=== PATIENT | female | born 1965 | race Caucasian/White ===

== ENCOUNTER 2017-07-24 09:35 | Emergency (ER) | payer BC, SELFPAY ==
--- NOTE | 2017-07-24 10:43 | RAD REPORT ---
EXAM DESCRIPTION: CT - CTHCSPWOC - 07/24/2017 10:27 am CLINICAL HISTORY: Trauma, head and neck injury. COMPARISON: None. TECHNIQUE: Axial 5 mm thick images of the head were obtained. Axial 2 mm thick images of the cervical spine were obtained with sagittal and coronal reconstruction images generated and reviewed. All CT scans are performed using dose optimization technique as appropriate and may include automated exposure control or mA/KV adjustment according to patient size. FINDINGS: CT HEAD WITHOUT CONTRAST: No acute hemorrhage, hydrocephalus or extra-axial collection is identified.No areas of brain edema or midline shift. The paranasal sinuses and mastoids are clear.The calvarium is intact. CT CERVICAL SPINE WITHOUT CONTRAST: No fracture or subluxation.Mild lower cervical spondylosis.No prevertebral soft tissues swelling is i dentified. IMPRESSION: No acute intracranial or cervical spine findings.
[2017-07-24 11:39] LABS: Absolute Lymphocytes (CBC) 1.5 K/uL (0.7-4.9); Absolute Monocytes 0.3 K/uL (0.1-1.3); Absolute Neutrophil 3.8 K/uL (1.8-8.0); Basophils % 0.4 % (0-1.3); Eosinophils % 2.1 % (0-4.4); Hematocrit 43.5 % (36.0-45.0); Lymphocytes % 25.6 % (15.3-44.8); MCH 27.9 pg (27.0-35.0); MCV 85.3 fL (80-100); MPV 7.5 fL (7.6-11.3); Monocytes % 5.3 % (3.3-12.3); RBC Red Blood Cell Count 5.11 M/uL (3.86-4.86)
[2017-07-24 11:50] LABS: Potassium 4.1 mEq/L (3.6-5.0)
--- NOTE | 2017-07-24 12:43 | RAD REPORT ---
EXAM DESCRIPTION: CT - Head angio - 07/24/2017 12:05 pm CLINICAL HISTORY: Headache, history of head bleed. COMPARISON: Non-contrast CT head 07/24/2017. FINDINGS: CT angiography of the [place] was obtained. No flow abnormality of the [place] is identified such as aneurysm, flow-limiting stenosis or vascular malformation. origin of the left posterior communicating artery noted. This is a norm al variant. Vertebrobasilar system is somewhat diminutive in size but widely patent. The dural venous sinuses are patent. IMPRESSION: No significant flow abnormality of the [place] identified.
--- NOTE | 2017-07-24 12:48 | EDPHYS ---
Physician Documentation [facility] Name: Magali Quiroz Age: 51 yrs Sex: Female : 1965 Arrival Date: 07/24/2017 Time: 09:39 Bed 17 Private MD: ED Physician Michael Mahoney HPI: 07/24 11:26 This 51 yrs old Female presents to ER via Ambulatory with complaints of PAIN snw FROM PREVIOUS HEAD INJURY. 11:26 The patient or guardian reports pain, tenderness. The complaints affect the left side snw of the back of head. Context of injury: resulted from a direct blow, a heavy object. Onset: The symptoms/episode began/occurred gradually, and became persistent. Associated signs and symptoms: Loss of consciousness: This patient did not experience any loss of consciousness. Pertinent positives: water flow sensation to left occipital area post a popping sensation. Severity of symptoms: At their worst the symptoms were moderate. The patient has not experienced similar symptoms in the past. The patient has not recently seen a physician. 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 - Social history:: Smoking status: Patient/guardian denies using tobacco. ROS: 11:23 Constitutional: Negative for fever, chills, and weight loss, Eyes: Negative for injury, snw pain, redness, and discharge, ENT: Negative for injury, pain, and discharge, Neck: Negative for injury, pain, and swelling, Cardiovascular: Negative for chest pain, palpitations, and edema, Respiratory: Negative for shortness of breath, cough, wheezing, and pleuritic chest pain, Abdomen/GI: Negative for abdominal pain, nausea, vomiting, diarrhea, and constipation, Back: Negative for injury and pain, : Negative for injury, bleeding, discharge, and swelling, MS/Extremity: Negative for injury and deformity, Skin: Negative for injury, rash, and discoloration. 11:23 Neuro: Positive for headache, pt states she feels a running water sensation at intervals to left occipital area. Exam: 11:23 Constitutional: This is a well developed, well nourished patient who is awake, alert, snw and in no acute distress. Head/Face: Normocephalic, atraumatic. Eyes: Pupils equal round and reactive to light, extra-ocular motions intact. Lids and lashes normal. Conjunctiva and sclera are non-icteric and not injected. Cornea within normal limits. Periorbital areas with no swelling, redness, or edema. ENT: Nares patent. No nasal discharge, no septal abnormalities noted. Tympanic membranes are normal and external auditory canals are clear. Oropharynx with no redness, swelling, or masses, exudates, or evidence of obstruction, uvula midline. Mucous membranes moist. Neck: Trachea midline, no thyromegaly or masses palpated, and no cervical lymphadenopathy. Supple, full range of motion without nuchal rigidity, or vertebral point tenderness. No Meningismus. Chest/axilla: Normal chest wall appearance and motion. Nontender with no deformity. No lesions are appreciated. Cardiovascular: Regular rate and rhythm with a normal S1 and S2. No gallops, murmurs, or rubs. Normal PMI, no JVD. No pulse deficits. Respiratory: Lungs have equal breath sounds bilaterally, clear to auscultation and percussion. No rales, rhonchi or wheezes noted. No increased work of breathing, no retractions or nasal flaring. Abdomen/GI: Soft, non-tender, with normal bowel sounds. No distension or tympany. No guarding or rebound. No evidence of tenderness throughout. Back: No spinal tenderness. No costovertebral tenderness. Full range of motion. Skin: Warm, dry with normal turgor. Normal color with no rashes, no lesions, and no evidence of cellulitis. MS/ Extremity: Pulses equal, no cyanosis. Neurovascular intact. Full, normal range of motion. Neuro: Awake and alert, GCS 15, oriented to person, place, time, and situation. Cranial nerves II-XII grossly intact. Motor strength 5/5 in all extremities. Sensory grossly intact. Cerebellar exam normal. Normal gait. Vital Signs: 10:00 BP 155 / 100; Pulse 88; Resp 18 S; Temp 98.2(TE); Pulse Ox 100% on R/A; Weight 68.95 kg aa5 (R); Height 5 ft. 4 in. (162.56 cm) (R); Pain 7/10; 10:47 BP 149 / 95; Pulse 78; Resp 16; Pulse Ox 100% ; mh5 11:30 BP 143 / 100; Pulse 69; Resp 16; Pulse Ox 100% on R/A; mh5 12:22 BP 145 / 98; Pulse 79; Resp 15; Pulse Ox 97% on R/A; mh5 10:00 Body Mass Index 26.09 (68.95 kg, 162.56 cm) aa5 [place] Coma Score: 11:26 Eye Response: spontaneous(4). Verbal Response: oriented(5). Motor Response: obeys snw commands(6). Total: 15. 13:01 Eye Response: spontaneous(4). Verbal Response: oriented(5). Motor Response: obeys snw commands(6). Total: 15. MDM: 10:44 Patient medically screened. snw 13:01 Data reviewed: vital signs, nurses notes. Data interpreted: Pulse oximetry: on room air snw is 97 %. Interpretation: normal. Counseling: I had a detailed discussion with the patient and/or guardian regarding: the historical points, exam findings, and any diagnostic results supporting the discharge/admit diagnosis, the presence of at least one elevated blood pressure reading (>120/80) during this emergency department visit, the need for outpatient follow up, to return to the emergency department if symptoms worsen or persist or if there are any questions or concerns that arise at home. Special discussion: Based on the patient's history, exam and DX evaluation, there is no indication for emergent intervention or inpatient TX. It is understood by the patient/guardian that if the SXs persist or worsen they need to return immediately for re-evaluation. Based on the history and exam findings, there is no indication for further emergent testing or inpatient evaluation. I discussed with the patient/guardian the need to see the primary care provider for further evaluation of the symptoms. 07/24 11:11 Order name: CBC with Diff; Complete Time: 11:46 snw 07/24 11:11 Order name: Chem 7; Complete Time: 11:57 [facility] 07/24 10:11 Order name: CT Head C Spine; Complete Time: 10:44 [facility] 07/24 11:12 Order name: Head angio; Complete Time: 12:46 [facility] 07/24 12:56 Order name: Urine Dipstick--Ancillary (enter results) bd Administered Medications: No medications were administered Disposition: 18:40 Co-signature as Attending Physician, Michael Mahoney MD. Disposition: 07/24/17 12:47 Discharged to Home. Impression: Headache. - Condition is Stable. - Discharge Instructions: General Headache Without Cause, Hypertension, Rehydration, Adult. - Prescriptions for Fiorinal 50- 325-40 mg Oral Capsule - take 1 capsule by ORAL route every 6 hours As needed - not to exceed 6 capsules per day; 10 capsule. orphenadrine citrate 100 mg Oral Tablet Sustained Release - take 1 tablet by ORAL route 2 times per day As needed; 20 tablet. - Medication Reconciliation Form, Thank You Letter, Antibiotic Education, Prescription Opioid Use form. - Follow up: Private Physician; When: 2 - 3 days; Reason: Recheck today's complaints, Continuance of care, Re-evaluation by your physician. Follow up: Emergency Department; When: As needed; Reason: Worsening of condition. Signatures: Dispatcher [employer] [facility] Anette Rivera, HACK SAW OPERATOR-C HACK SAW OPERATOR-Csnw Winifred Joshi RN RN aa5 Fabiana Hickey RN RN hb Michael Mahoney MD MD Corrections: (The following items were deleted from the chart) 13:01 12:47 07/24/2017 12:47 Discharged to Home. Impression: Headache. Condition is Stable. hb Forms are Medication Reconciliation Form, Thank You Letter, Antibiotic Education, Prescription Opioid Use. Follow up: Private Physician; When: 2 - 3 days; Reason: Recheck today's complaints, Continuance of care, Re-evaluation by your physician. Follow up: Emergency Department; When: As needed; Reason: Worsening of condition. snw
--- NOTE | 2017-07-24 12:48 | ER ---
Nurse's Notes [facility] Name: Magali Quiroz Age: 51 yrs Sex: Female : 1965 Arrival Date: 07/24/2017 Time: 09:39 Bed 17 Private MD: Diagnosis: Headache Presentation: 07/24 09:56 Presenting complaint: Patient states: "I had a traumatic brain injury back in 2008 and aa5 I had bleeding in the brain but this Thursday I hit my head with a metal thing and I am worried about bleeding again". Pt denies LOC. Pt c/o head and neck pain. Transition of care: patient was not received from another setting of care. Onset of symptoms was July 2017. Initial Sepsis Screen: Does the patient meet any 2 criteria? No. Patient's initial sepsis screen is negative. Does the patient have a suspected source of infection? No. Patient's initial sepsis screen is negative. Care prior to arrival: None. 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 - Social history:: Smoking status: Patient/guardian denies using tobacco. Screenin:20 Abuse screen: Denies threats or abuse. Denies injuries from another. Nutritional hb screening: No deficits noted. Tuberculosis screening: No symptoms or risk factors identified. Fall Risk None identified. Assessment: 11:20 General: Appears in no apparent distress. Behavior is calm, cooperative. Pain: Pain hb currently is 3 out of 10 on a pain scale. Neuro: Level of Consciousness is awake, alert, obeys commands, Oriented to person, place, time, situation. Cardiovascular: Capillary refill < 3 seconds Patient's skin is warm and dry. Respiratory: Airway is patent Trachea midline Respiratory effort is even, unlabored, Respiratory pattern is regular, symmetrical. GI: No signs and/or symptoms were reported involving the gastrointestinal system. : No signs and/or symptoms were reported regarding the genitourinary system. EENT: No signs and/or symptoms were reported regarding the EENT system. Derm: No signs and/or symptoms reported regarding the dermatologic system. Skin is pink, warm \\T\\ dry. Musculoskeletal: No signs and/or symptoms reported regarding the musculoskeletal system. 12:00 Reassessment: Patient appears in no apparent distress at this time. No changes from hb previously documented assessment. Patient and/or family updated on plan of care and expected duration. Pain level reassessed. Patient is alert, oriented x 3, equal unlabored respirations, skin warm/dry/pink. 13:00 Reassessment: Patient appears in no apparent distress at this time. No changes from hb previously documented assessment. Patient and/or family updated on plan of care and expected duration. Pain level reassessed. Patient is alert, oriented x 3, equal unlabored respirations, skin warm/dry/pink. Vital Signs: 10:00 BP 155 / 100; Pulse 88; Resp 18 S; Temp 98.2(TE); Pulse Ox 100% on R/A; Weight 68.95 kg aa5 (R); Height 5 ft. 4 in. (162.56 cm) (R); Pain 7/10; 10:47 BP 149 / 95; Pulse 78; Resp 16; Pulse Ox 100% ; mh5 11:30 BP 143 / 100; Pulse 69; Resp 16; Pulse Ox 100% on R/A; mh5 12:22 BP 145 / 98; Pulse 79; Resp 15; Pulse Ox 97% on R/A; mh5 10:00 Body Mass Index 26.09 (68.95 kg, 162.56 cm) aa5 [place] Coma Score: 11:26 Eye Response: spontaneous(4). Verbal Response: oriented(5). Motor Response: obeys snw commands(6). Total: 15. 13:01 Eye Response: spontaneous(4). Verbal Response: oriented(5). Motor Response: obeys snw commands(6). Total: 15. ED Course: 09:39 Patient arrived in ED. sb2 09:58 Triage completed. aa5 09:58 Arm band placed on. aa5 10:26 CT completed. Patient tolerated procedure well. Patient moved to CT via wheelchair. sj Patient moved back from CT. 10:27 CT Head C Spine In Process Unspecified. EDMS 10:32 [facility]C [facility] snw 10:32 Michael Mahoney MD is Attending Physician. snw 10:37 Fabiana Hickey, RN is Primary Nurse. hb 11:20 Patient has correct armband on for positive identification. Bed in low position. Call hb light in reach. Side rails up X 1. 11:33 Inserted saline lock: 20 gauge in right antecubital area, using aseptic technique. hb Blood collected. 12:05 Head angio In Process Unspecified. EDMS 12:05 CT completed. Patient tolerated procedure well. Patient moved to CT via wheelchair. sj Patient moved to CT Patient moved back from CT. 13:01 No provider procedures requiring assistance completed. IV discontinued, intact, hb bleeding controlled, No redness/swelling at site. Pressure dressing applied. Administered Medications: No medications were administered Outcome: 12:47 Discharge ordered by . snw 13:01 Discharged to home ambulatory, with significant other. hb 13:01 Condition: stable 13:01 Discharge instructions given to patient, Instructed on discharge instructions, follow up and referral plans. medication usage, Demonstrated understanding of instructions, follow-up care, medications, Prescriptions given X 2. 13:01 Patient left the ED. hb Signatures: Dispatcher [employer] EDLA Anette Rivera FNP-C FNP-Hank Tiffanie Riggins Audri, RN RN [facility] Fabiana Hickey RN RN hb Martinez, Maria [facility] Lucía Jane 2 Corrections: (The following items were deleted from the chart) 10: 09:56 Presenting complaint: Patient states: "I had a traumatic brain injury back in 2008 and I had bleeding in the brain but this Thursday I hit my head with a metal thing and I am worried about bleeding again". Pt denies LOC. [facility] 10: 09:56 Acuity: KATHERINE 3 aa5 aa5
[2017-07-24 14:03] LABS: Urine Blood NEGATIVE (NEG); Urine Glucose NEGATIVE (NEG); Urine Protein NEGATIVE (NEG); Urine Specific Gravity 1.015 (1.005-1.030); Urine pH 7.5 (5.0-7.0)
== END 2017-07-24 13:01 | disposition home or self-care (01) ==
LOC: ER 09:35
DX: R51 Headache (principal); Z87.820 Personal history of traumatic brain injury; Z88.5 Allergy status to narcotic agent
CPT/HCPCS: 36415; 70450; 70496; 72125; 80048; 81003; 85025; 99284; Q9967

== ENCOUNTER 2017-08-11 03:21 | Emergency (ER) | payer BC, SELFPAY ==
--- NOTE | 2017-08-11 04:55 | ER ---
Nurse's Notes [facility] Name: Magali Quiroz Age: 52 yrs Sex: Female : 1965 Arrival Date: 08/11/2017 Time: 03:26 Bed 14 Private MD: Rigoberto Morales Diagnosis: Other sprain of right foot Presentation: 08/11 03:29 Presenting complaint: Patient states: that she tripped over the dog last night at 2030. fc Now nancy is red and swollen, very tender to touch. Transition of care: patient was not received from another setting of care. Onset of symptoms was August 10, 2017 at 20:30. Risk Assessment: Do you want to hurt yourself or someone else? Patient reports no desire to harm self or others. Initial Sepsis Screen: Does the patient meet any 2 criteria? HR > 90 bpm. Yes Does the patient have a suspected source of infection? No. Patient's initial sepsis screen is negative. Care prior to arrival: Medication(s) given: Hydrocodone at 2130. 03:29 Method Of Arrival: Wheelchair fc 03:29 Acuity: KATHERINE 4 fc [employer]: 03:33 LMP N/A - Post-menopause fc Historical: - Allergies: 03:33 Demerol; fc - Home Meds: 03:33 hydrocodone-acetaminophen 7.5-325 mg Oral tab every 4-6 hours [Active]; Zoloft 50 mg fc oral tab 1 tab nightly [Active]; cyclobenzaprine 10 mg oral tab as needed [Active]; duloxetine 30 mg 1 tab in am and mid day then 60 mg at night oral cpDR [Active]; - PMHx: 03:33 Brain bleed from traumatic head injury 2008; ectopic ; muscle pain; fc - PSHx: 03:33 Knee surgery; Cholecystectomy; Appendectomy; back surg; ectopic ; fc - Immunization history:: Last tetanus immunization: up to date. - Social history:: Smoking status: Patient/guardian denies using tobacco. - Ebola Screening: : Patient negative for fever greater than or equal to 101.5 degrees Fahrenheit, and additional compatible Ebola Virus Disease symptoms Patient denies exposure to infectious person Patient denies travel to an Ebola-affected area in the 21 days before illness onset. Screenin:35 Abuse screen: Denies threats or abuse. Nutritional screening: No deficits noted. Tuberculosis screening: No symptoms or risk factors identified. 04:00 Fall Risk None identified. aa1 Assessment: 04:00 General: Appears in no apparent distress. comfortable, Behavior is calm, cooperative, aa1 appropriate for age. Pain: Complains of pain in dorsum of right foot. Neuro: Level of Consciousness is awake, alert, obeys commands, Oriented to person, place, time, situation. Respiratory: Airway is patent Respiratory effort is even, unlabored, Respiratory pattern is regular, symmetrical. GI: No signs and/or symptoms were reported involving the gastrointestinal system. : No signs and/or symptoms were reported regarding the genitourinary system. EENT: No signs and/or symptoms were reported regarding the EENT system. Derm: Skin is intact, is healthy with good turgor, Skin is pink, warm \T\ dry. Musculoskeletal: Circulation, motion, and sensation intact. Capillary refill < 3 seconds, Range of motion: intact in all extremities. 05:05 Reassessment: Patient appears in no apparent distress at this time. Patient is alert, aa1 oriented x 3, equal unlabored respirations, skin warm/dry/pink. Discussed d/c \T\ f/u instructions with pt; denies questions or concerns at this time. Vital Signs: 03:33 BP 152 / 97; Pulse 95; Resp 18; Temp 97.9(O); Pulse Ox 99% on R/A; Weight 68.49 kg (R); fc Height 5 ft. 4 in. (162.56 cm) (R); Pain 8/10; 03:33 Body Mass Index 25.92 (68.49 kg, 162.56 cm) ED Course: 03:26 Patient arrived in ED. ds1 03:26 Rigoberto Morales MD is Private Physician. ds1 03:31 Triage completed. fc 03:33 Arm band placed on right wrist. Patient placed in an exam room, on a stretcher. fc 03:35 Patient has correct armband on for positive identification. Bed in low position. Call light in reach. 03:47 Ranjit Solis MD is Attending Physician. tw4 04:00 X-ray completed. Portable x-ray completed in exam room. Patient tolerated procedure kw well. 04:01 Foot Right 3 View XRAY In Process Unspecified. EDMS 04:55 Rigoberto Morales MD is Referral Physician. tw4 04:57 Patria Durand, RN is Primary Nurse. aa1 05:05 No provider procedures requiring assistance completed. Patient did not have IV access aa1 during this emergency room visit. Administered Medications: 05:00 Drug: [place] 5 mg-325 mg 1 tabs Route: PO; aa1 05:04 Follow up: Response: No adverse reaction; Medication administered at discharge. aa1 Outcome: 04:55 Discharge ordered by . tw4 05:05 Discharged to home via wheelchair, with significant other. aa1 05:05 Condition: good 05:05 Discharge instructions given to patient, significant other, Instructed on discharge instructions, follow up and referral plans. medication usage, Demonstrated understanding of instructions, follow-up care, medications, Prescriptions given X 2. 05:09 Patient left the ED. aa1 Signatures: Dispatcher [employer] EDNE Patria Durand, GABE BERNAL aa1 Kiana Carvajal RN RN fc [place], Demi ds1 Danisha William Terrence, MD MD tw4
--- NOTE | 2017-08-11 04:55 | EDPHYS ---
Physician Documentation [facility] Name: Magali Quiroz Age: 52 yrs Sex: Female : 1965 Arrival Date: 08/11/2017 Time: 03:26 Bed 14 Private MD: Rigoberto Morales ED Physician Ranjit Solis HPI: 08/11 06:56 This 52 yrs old Female presents to ER via Wheelchair with complaints of Foot tw4 Injury. 06:56 The patient presents with a contusion, an injury. tw4 06:57 The complaints affect the right foot. Context: The problem was sustained at home. tw4 Modifying factors: The symptoms are alleviated by nothing, the symptoms are aggravated by nothing. Associated signs and symptoms: The patient has no apparent associated signs or symptoms. Severity of symptoms: At their worst the symptoms were. The patient has not experienced similar symptoms in the past. 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 - Social history:: Smoking status: Patient/guardian denies using tobacco. - Ebola Screening: : Patient negative for fever greater than or equal to 101.5 degrees Fahrenheit, and additional compatible Ebola Virus Disease symptoms Patient denies exposure to infectious person Patient denies travel to an Ebola-affected area in the 21 days before illness onset. ROS: 06:57 MS/extremity: Positive for injury or acute deformity, decreased range of motion, pain. tw4 06:57 Cardiovascular: Negative for chest pain, palpitations, and edema, Respiratory: Negative for shortness of breath, cough, wheezing, and pleuritic chest pain, Abdomen/GI: Negative for abdominal pain, nausea, vomiting, diarrhea, and constipation, Back: Negative for injury and pain. 06:57 MS/extremity: Positive for injury or acute deformity, contusion, decreased range of motion, pain, Negative for Exam: 06:57 Constitutional: This is a well developed, well nourished patient who is awake, alert, tw4 and in no acute distress. Head/Face: Normocephalic, atraumatic. Cardiovascular: Regular rate and rhythm with a normal S1 and S2. No gallops, murmurs, or rubs. Normal PMI, no JVD. No pulse deficits. Respiratory: Lungs have equal breath sounds bilaterally, clear to auscultation and percussion. No rales, rhonchi or wheezes noted. No increased work of breathing, no retractions or nasal flaring. 06:57 Musculoskeletal/extremity: Extremities: noted in the dorsum of right foot: ROM: limited active range of motion, limited passive range of motion, in the dorsum of right foot, right second toe and Right first toenail. Vital Signs: 03:33 BP 152 / 97; Pulse 95; Resp 18; Temp 97.9(O); Pulse Ox 99% on R/A; Weight 68.49 kg (R); fc Height 5 ft. 4 in. (162.56 cm) (R); Pain 8/10; 03:33 Body Mass Index 25.92 (68.49 kg, 162.56 cm) fc MDM: 03:47 Patient medically screened. tw4 06:57 Data reviewed: vital signs, nurses notes. Data interpreted: monitoring analyst: rhythm is tw4 normal sinus rhythm, Pulse oximetry: Interpretation: normal. Counseling: I had a detailed discussion with the patient and/or guardian regarding: the historical points, exam findings, and any diagnostic results supporting the discharge/admit diagnosis. Medication response: NORCO. Response to treatment: the patient's symptoms have markedly improved after treatment, and as a result, I will discharge patient. Special discussion: I discussed with the patient/guardian in detail that at this point there is no indication for admission to the hospital. It is understood, however, that if the symptoms persist or worsen the patient needs to return immediately for re-evaluation. 08/11 03:39 Order name: Foot Right 3 View XRAY; Complete Time: 07:59 fc Administered Medications: 05:00 Drug: [place] 5 mg-325 mg 1 tabs Route: PO; aa1 05:04 Follow up: Response: No adverse reaction; Medication administered at discharge. aa1 Disposition: 08/11/17 04:55 Discharged to Home. Impression: Other sprain of right foot. - Condition is Stable. - Discharge Instructions: Foot Contusion, Foot Contusion, [id number]. - Prescriptions for Ibuprofen 800 mg Oral Tablet - take 1 tablet by ORAL route every 8 hours As needed take with food; 30 tablet. Tylenol- Codeine #3 300-30 mg Oral Tablet - take 2 tablet by ORAL route every 6 hours As needed; 6 tablet. - Medication Reconciliation Form, Thank You Letter, Antibiotic Education, Prescription Opioid Use form. - Follow up: Rigoberto Morales MD; When: As needed; Reason: If symptoms return, Recheck today's complaints, Continuance of care, Re-evaluation by your physician. - Problem is new. - Symptoms have improved. Addendum: 08/19/2017 08:11 Addendum: D/w patient and she indicated that in follow-up her PCP noted the fracture k dr and that she had been sent for an MRI. Current concern is for a possible Lis Franc fracture. She was not given pain medication, splinting or wrap support. 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 I indicated that we would defer the physician portion of the bill. The conversation was cordial and she seemed to be satisfied with the call-back and proposed outcome/remediation. 09/17/2017 15:55 Addendum: Katherine abreu dr Signatures: Dispatcher [employer] [facility] Patria Durand RN RN aa1 German Rodarte MD MD [facility] Kiana Carvajal RN RN Ranjit Solsi MD MD tw4 Corrections: (The following items were deleted from the chart) 08/11 05:09 04:55 08/11/2017 04:55 Discharged to Home. Impression: Other sprain of right foot. aa1 Condition is Stable. Forms are Medication Reconciliation Form, Thank You Letter, Antibiotic Education, Prescription Opioid Use. Follow up: Rigoberto Morales; When: As needed; Reason: If symptoms return, Recheck today's complaints, Continuance of care, Re-evaluation by your physician. Problem is new. Symptoms have improved. tw4
[2017-08-11] MEDS ORDERED: HYDROCODONE/APAP 5/325 MG TAB ONE (05:01)
--- NOTE | 2017-08-11 09:21 | RAD REPORT ---
EXAM DESCRIPTION: RAD - Foot Right 3 View - 08/11/2017 4:01 am CLINICAL HISTORY: Pain to foot COMPARISON: None. FINDINGS: Soft tissue swelling is seen along the dorsum of the foot at the level of the tarsal metat arsal articulations. There is subtle lucency seen at the base of the second metatarsal medially this may be a insignificant, however a subtle fracture could also have this appearance. Advise followup MR imaging if pain persists or progresses to better assess this region.
== END 2017-08-11 05:09 | disposition home or self-care (01) ==
LOC: ER 03:21
DX: S93.601A Unspecified sprain of right foot, initial encounter (principal); X58.XXXA Exposure to other specified factors, initial encounter; Y93.9 Activity, unspecified; Y92.009 Unspecified place in unspecified non-institutional (private) residence as the place of occurrence of the external cause; Y99.9 Unspecified external cause status; Z88.8 Allergy status to other drugs, medicaments and biological substances
CPT/HCPCS: 99283

== ENCOUNTER 2022-05-24 13:40 | Emergency (ER) | payer OTHER ==
--- OUTSIDE RECORDS SUMMARY | 2022-05-24 13:46 | XMS REPORT | Continuity of Care Document ---
:1965 Author Organization [facility] t Address [address] [facility] [place] [address] Care Team Providers Name Role Phone Rigoberto Morales Jr. Primary Care Physician ANTONIO RUEDA Attending Clinician Unavailable Carla Hollins PT Attending Clinician Unavailable MADHURI NELSON Attending Clinician Unavailable Madhuri Ann Attending Clinician Antonio Rueda MD Attending Clinician Doctor Unassigned, [place] Attending Clinician Unavailable Tammy Garza RN Attending Clinician Unavailable Pob, [facility] Main Attending Clinician Unavailable Only, Adc Test Attending Clinician Unavailable MAURI ORTEGA Attending Clinician Unavailable Mauri Ortega DO Attending Clinician Shantell Lynn Attending Clinician Unavailable ANTONIO RUEDA Admitting Clinician Unavailable Antonio Rueda MD Admitting Clinician MAURI ORTEGA Admitting Clinician Unavailable Shantell Lynn Admitting Clinician Unavailable Payers Payer Name Policy Type Policy Number Effective Date Expiration Date Bethanie PIKE [id number] 2021 PLAN 00:00:00 Problems Condition Condition Condition Status Onset Resolution Last Treating Co mments Source Name Details Category Date Date Treatment Clinician Date Primary Primary Disease Active Overview: Univ ers osteoarthr osteoarthr 2- Formattin ity of itis of itis of 00:00: g of this [place] left hip left hip 00 note Medica l might be Branch different from the original. Added automatic ally from request for surgery [id number] Allergies, Adverse Reactions, Alerts Allergy Allergy Status Severity Reaction(s) Onset Inactive Treating Comm ents Source Name Type Date Date Clinician Thad Propensi Active Hives Univer s ne ty to 14 ity of adverse 00:00: [place] reaction 00 Medical s Branch MEPERIDI DRUG Active Hives Univers NE INGREDI 03-22 ity of 00:00: [place] 00 Medical Branch meperidi DA Active U [facility] [place] 00:[facility]: [facility] 00 are [facility] meperidi DA Active U UNKNOWN [facility] ne 10-07 [place] 00:00: Health 00 are [facility] Social History Social Habit Start Date Stop Date Quantity Comments Source Exposure to Not sure [facility] SARS-CoV-2 (event) Medica l Branch Tobacco use and 2021-04-01 2021-04-01 Never used [facility] exposure 00:00:00 00:00:00 Medical Branch Sex Ass[birth year] [facility] 00:00:00 00:00:00 Medical Branch Smoking Status Start Date Stop Date Source Smoker, current status 2021-04-01 00:00:00 [facility] Medical unknown Branch Medications Ordered Filled Start Stop Current Ordering Indication Dosage Frequency Signature Comments Components Source Medication Medication Date Date Medication? Clinician (SIG) Name Name rivaroxaban 2021- No 1480 10mg Take 1 Uni vers (XARELTO) 04-15 tablet by ity of 10 mg 00:00: 05:59 mouth [place] tablet 00 :00 daily for Medical 28 days. Branch Indication s: deep vein thrombosis prevention in hip surgery rivaroxaban No 1480 10mg Take 1 Uni vers (XARELTO) 04-15 tablet by ity of 10 mg 00:00: 05:59 mouth [place] tablet 00 :00 daily for Medical 28 days. Branch Indication s: deep vein thrombosis prevention in hip surgery rivaroxaban 2021- No 1480 10mg Take 1 Uni vers (XARELTO) 04-15 tablet by ity of 10 mg 00:00: 05:59 mouth [place] tablet 00 :00 daily for Medical 28 days. Branch Indication s: deep vein thrombosis prevention in hip surgery rivaroxaban 2021- No 1480 10mg Take 1 Uni vers (XARELTO) 2-07 03-08 tablet by ity of 10 mg 00:00: 05:59 mouth [place] tablet 00 :00 daily for Medical 28 days. Branch Indication s: deep vein thrombosis prevention in hip surgery lisinopriL Yes Univers 20 mg 1-26 ity of tablet 00:00: [place] [facility] lisinopriL 0 Yes Univers 20 mg 1-26 ity of tablet 00:00: [place] [facility] lisinopriL 0 Yes Univers 20 mg 1-26 ity of tablet 00:00: [place] [facility] lisinopriL 0 Yes Univers 20 mg 1-26 ity of tablet 00:00: [place] [facility] lisinopriL 0 Yes Univers 20 mg 1-26 ity of tablet 00:00: [place] [facility] Branch DULoxetine Yes TAKE ONE Uni vers 60 mg 1-14 (1) ity of capsule 00:00: [place] 00 BY MOUTH Medical TWICE A Branch DAY FOR NERVE PAIN. DULoxetine Yes TAKE ONE Uni vers 60 mg 1-14 (1) ity of capsule 00:00: [place] 00 BY MOUTH Medical TWICE A Branch DAY FOR NERVE PAIN. DULoxetine Yes TAKE ONE Uni vers 60 mg 1-14 (1) ity of capsule 00:00: [place] 00 BY MOUTH Medical TWICE A Branch DAY FOR NERVE PAIN. DULoxetine Yes TAKE ONE Uni vers 60 mg 1-14 (1) ity of capsule 00:00: [place](S[place] 00 BY MOUTH Medical TWICE A Branch DAY FOR NERVE PAIN. DULoxetine Yes TAKE ONE Uni vers 60 mg 1-14 (1) ity of capsule 00:00: [place] 00 BY MOUTH Medical TWICE A Branch DAY FOR NERVE PAIN. HYDROcodone Yes TAKE ONE Un anival -acetaminop 1-12 (1) ity of hen 10-325 00:00: [place](S) [place] mg tablet 00 BY MOUTH Medica l FOUR TIMES Branch A DAY NEEDED FOR PAIN. HYDROcodone 0 Yes TAKE ONE Un anival -acetaminop 1-12 (1) ity of hen 10-325 00:00: [place](S) [place] tablet 00 BY MOUTH Medica l FOUR TIMES Branch A DAY NEEDED FOR PAIN. HYDROcodone 0 Yes TAKE ONE Un anival -acetaminop 1-12 (1) ity of hen 10-325 00:00: TABLET(S) [place] tablet 00 BY MOUTH Medica l FOUR TIMES Branch A DAY NEEDED FOR PAIN. HYDROcodone 0 Yes TAKE ONE Un anival -acetaminop 1-12 (1) ity of hen 10-325 00:00: TABLET(S) [place] tablet 00 BY MOUTH Medica l FOUR TIMES Branch A DAY NEEDED FOR PAIN. HYDROcodone Yes TAKE ONE Un anival -acetaminop 1-12 (1) ity of hen 10-325 00:00: TABLET(S) [place] tablet 00 BY MOUTH Medica l FOUR TIMES Branch A DAY NEEDED FOR PAIN. traMADoL Yes TAKE ONE Unive rs 200 mg 24 1-05 (1) ity of hr tablet 00:00: TABLET(S) Yash as 00 BY MOUTH Medical ONCE A DAY Branch NEEDED FOR PAIN. traMADoL Yes TAKE ONE Unive rs 200 mg 24 1-05 (1) ity of hr tablet 00:00: TABLET(S) Yash as 00 BY MOUTH Medical ONCE A DAY Branch NEEDED FOR PAIN. traMADoL 0 Yes TAKE ONE Unive rs 200 mg 24 1-05 (1) ity of hr tablet 00:00: TABLET(S) Y[place] as 00 BY MOUTH Medical ONCE A DAY Branch NEEDED FOR PAIN. traMADoL 0 Yes TAKE ONE Unive rs 200 mg 24 1-05 (1) ity of hr tablet 00:00: TABLET(S) Yash as 00 BY MOUTH Medical ONCE A DAY Branch NEEDED FOR PAIN. traMADoL Yes TAKE ONE Unive rs 200 mg 24 1-05 (1) ity of hr tablet 00:00: TABLET(S) Yash as 00 BY MOUTH Medical ONCE A DAY Branch NEEDED FOR PAIN. CLENPIQ 10 2020-03 Yes TAKE Univ ers mg-3.5 gram 2-13 DIRECTED ity of -12 00:00: PER DOCTOR [place] gram/160 mL 00 INSTRUCTIO Me dical Soln NS. Branch [facility]-03 Yes TAKE Univ ers mg-3.5 gram 2-13 DIRECTED ity of -12 00:00: PER DOCTOR [place] gram/160 mL 00 INSTRUCTIO Me dical Soln NS. Branch [facility] 10 2020-03 Yes TAKE Univ ers mg-3.5 gram 2-13 DIRECTED ity of -12 00:00: PER DOCTOR [place] gram/160 mL 00 INSTRUCTIO Me dical Soln NS. Branch CLENP 10 2020-03 Yes TAKE Univ ers mg-3.5 gram 2-13 DIRECTED ity of -12 00:00: PER DOCTOR [place] gram/160 mL 00 INSTRUCTIO Me dical Soln NS. Branch [facility] 10 2020-03 Yes TAKE Univ ers mg-3.5 gram 2-13 DIRECTED ity of -12 00:00: PER DOCTOR [place] gram/160 mL 00 INSTRUCTIO Me dical Soln NS. Branch amLODIPine 2020-03 Yes 10mg Take 10 mg U nivers 10 mg 1-17 by mouth ity of tablet 00:00: daily. [address] traZODone 2020-03 Yes TAKE ONE Univ ers 150 mg 1-17 (1) TABLET ity of tablet 00:00: (150 MG) BY MOUTH Medical DAILY Branch NEEDED AT BEDTIME. amLODIPine 2020-03 Yes 10mg Take 10 mg U nivers 10 mg 1-17 by mouth ity of tablet 00:00: daily. [place] [facility] traZODone 2020-03 Yes TAKE ONE Univ ers 150 mg 1-17 (1) TABLET ity of tablet 00:00: (150 MG) BY MOUTH Medical DAILY Branch NEEDED AT BEDTIME. amLODIPine 2020-03 Yes 10mg Take 10 mg U nivers 10 mg 1-17 by mouth ity of tablet 00:00: daily. [address] traZODone 2020-03 Yes TAKE ONE Univ ers 150 mg 1-17 (1) TABLET ity of tablet 00:00: (150 MG) BY MOUTH Medical DAILY Branch NEEDED AT BEDTIME. amLODIPine 2020-03 Yes 10mg Take 10 mg U nivers 10 mg 1-17 by mouth ity of tablet 00:00: daily. [place] [facility] traZODone 2020-03 Yes TAKE ONE Univ ers 150 mg 1-17 (1) TABLET ity of tablet 00:00: (150 MG) BY MOUTH Medical DAILY Branch NEEDED AT BEDTIME. amLODIPine 2020-03 Yes 10mg Take 10 mg U nivers 10 mg 1-17 by mouth ity of tablet 00:00: daily. [place] Medical [facility] traZODone 2020-03 Yes TAKE ONE Univ ers 150 mg 1-17 (1) TABLET ity of tablet 00:00: (150 MG) BY MOUTH Medical DAILY Branch NEEDED AT BEDTIME. Vital Signs Vital Name Observation Time Observation Value Comments Source Systolic blood 2021-04-30 19:21:00 121 mm[Hg] Univer sity [facility] Diastolic blood 2021-04-30 19:21:00 76 [facility]Hg[facility] Heart rate 2021-04-30 19:21:00 74 /min [facility] Body height 2021-04-30 19:21:[address] [facility] Body weight 2021-04-30 19:21:[address] [facility] BMI 2021-04-30 19:21:00 26.97 kg/m2 [facility] Oxygen saturation 2021-04-30 19:21:00 99 /min [facility] in Arterial blood Medical Br anch by Pulse oximetry Procedures Procedure Date / Time Performing Clinician Source Performed PHYSICIAN CORRESPONDENCE 2021-04-22 06:01:00 Doctor Unassigned, [facility] [place] Medical Branch [id number] 2020-10-11 00:00:00 CHORA [facility] [id number] 2020-10-11 00:00:00 CHORA [facility] [id number] 2020-10-11 00:00:00 YOSHI [facility] [id number] 2020-10-11 00:00:00 CHORA [facility] Encounters Start End Encounter Admission Attending Care Care Encounter Source Date/Time Date/Time Type Type Clinicians Facility Department ID 2021-04-10 [facility] [id number] Univers 16:50:26 ANTONIO antony [facility] 2021-04-09 Outpatient Praveen [facility] [id number] Univers 08:55:42 ANTONIO [facility] 2021-07-10 2021-07-10 [facility] [id number] Univers 00:00:00 00:00:00 Management Carla HEALTH [id number] ity of [facility] 4.2.7.2.686 [place] bethanie [facility] [phone] [address] ([facility]) 2021-04-30 2021-04-30 Outpatient Praveen NELSON [facility] [id number] Univers 13:15:00 13:55:32 MADHURI antony [facility] 2021-04-30 2021-04-30 Office [facility] [id number] Univers 13:15:00 13:30:00 Visit Madhuri S Pocits [id number] it y of [place] [id number] Yash as SAUL?BLEA [phone] Oh justus PICKENS [address] [place] [address] OFFICE [facility] 2021-04-30 2021-04-30 Outpatient Praveen NELSON [facility] [id number] Univers 13:15:00 13:15:00 MADHURI antony [facility] 2021-04-30 2021-04-30 [facility] [id number] Univers 00:00:00 00:00:00 (Out) Madhuri S HEALTH [id number] it y of [place] [id number] Yash as SAUL?BLEA [phone] [place] justus PICKENS [address] [place] [address] OFFICE [facility] 2021-04-30 2021-04-30 [facility] [id number] Univers 00:00:00 00:00:00 (Out) Antonio L HEALTH [id number] it y of [place] [id number] Yash as SAUL?BLEA [phone] Oh [address] OFFICE BUILDING 2021-04-22 2021-04-22 Telephone [facility] 1.2.840.114 [id number] Univers 00:00:00 00:00:00 Antonio L HEALTH [id number] it [facility] [id number] Yash as SAUL?BLEA [phone] [address] 2021-04-22 2021-04-22 Orders Doctor RUTH 1.2.840.114 [id number] Univers 00:00:00 00:00:00 Only Unassigned, BARB [id number] ity of [place] [facility] 4.2.7.2.686 Yash as [phone] [address] 2021-04-19 2021-04-19 Telephone [facility] [id number] Univers 00:00:00 00:00:00 Madhuri S HEALTH [id number] it y [facility] [id number] Yash as SAUL?BLEA [id number] [address] 2021-04-15 2021-04-15 Outpatient R [facility] SOR [id number] Univers 06:30:00 15:41:00 ANTONIO camposantony [facility] 2021-04-15 2021-04-15 [facility] [id number] Univers 06:30:00 15:41:00 Encounter Antonio FARRELL [id number] ity of [place] 4.2.7.2.686 [place] SURGICAL [id number] [address] 2021-04-15 2021-04-15 Outpatient R [facility] SOR [id number] Univers 06:30:00 15:41:00 ANTONIO itantony [facility] 2021-04-15 2021-04-15 Surgery [facility] [id number] Univers 07:30:00 10:17:00 Antonio FARRELL 350.1.13.10 i ty [facility] 4.2.7.2.686 [place] SUR[place]ICAL [phone] [facility] CENTER 020 Branch 2021-04-15 2021-04-15 Nurse RUTH Garza [id number] Univers 00:00:00 00:00:00 Triage Tammy DAY [id number] ity of HOSPITAL 4.2.7.2.686 Yash as [phone] [facility] 019 Branch 2021-04-15 2021-04-15 Orders Doctor RUTH [id number] Univers 00:00:00 00:00:00 Only Unassigned, BARB 350.1.13.10 ity of [place] [facility] 4.2.7.2.686 Yash as [phone] [facility] 009 Branch 2021-04-12 2021-04-12 [facility] [id number] Univers 08:35:01 23:59:00 Encounter Antonio FARRELL [id number] ity of [place] 4.2.7.2.686 [facility] [phone] [facility] 850 Branch 2021-04-12 2021-04-12 [employer] Developer Audrey, Gianni Lab Main [facility] [id number] Univers 08:45:00 09:00:00 Visit Antonio Rueda 350.1.13.10 ity of [place] 4.2.7.2.686 [facility] PROFESSIO [phone] [facility] 2021-04-12 2021-04-12 Laboratory Only, Adc Test [facility] 1.2.840. 114 [id number] Univers 08:30:00 08:45:00 Only Antonio Rueda [id number] ity of [place] [id number] [place] [address] [phone] [facility] [address] 2021-04-12 2021-04-12 [facility] [id number] Univers 08:34:43 08:34:43 ANTONIO itantony of [facility] 2021-04-12 2021-04-12 [facility] 1.2.840.114 [id number] Univers 08:34:43 08:34:43 Encounter Antonio FARRELL [id number] ity of [place] 4.2.7.2.686 [place] [id number] [facility] [address] 2021-04-12 2021-04-12 Outpatient [facility] [id number] Univers 08:30:00 08:30:00 ANTONIO gtz [facility] 2021-04-12 2021-04-12 Outpatient R [facility] [id number] Univers 08:30:00 08:30:00 ANTONIO gtz [facility] 2021-04-11 2021-04-11 Telephone [facility] 1.2.840.114 [id number] Univers 00:00:00 00:00:00 Antonio Monroy Pocits 350.1.13.10 it y of [facility] 4.2.7.2.686 Yash as SAUL?BLEA [phone] Oh justus PICKENS [address] [place] [address] OFFICE [facility] 2021-04-10 2021-04-10 Telephone [facility] 1.2.840.114 [id number] Univers 00:00:00 00:00:00 Antonio Monroy Pocits 350.1.13.10 it y of [facility] 4.2.7.2.686 Yash as SAUL?BLEA [id number] Oh justus PICKENS [address] [place] [address] OFFICE [facility] 2021-04-10 2021-04-10 Orders Doctor RUTH 1.2.840.114 [id number] Univers 00:00:00 00:00:00 Only Unassigned, BARB 350.1.13.10 ity of [place] [facility] 4.2.7.2.686 Yash as [phone] [facility] [address] 2021-04-09 2021-04-09 Telephone [facility] 1.2.840.114 [id number] Univers 00:00:00 00:00:00 Antonio Monroy Pocits 350.1.13.10 it y [facility] 4.2.7.2.686 Yash as SAUL?BLEA [phone] Oh justus PICKENS [address] [facility] OFFICE [facility] 2021-04-09 2021-04-09 Telephone CHER Rueda 1.2.840.114 [id number] Univers 00:00:00 00:00:00 Antonio MCALLISTER 350.1.13.10 it y of [place] 4.2.7.2.686 Yash as SAUL?BLEA [phone] Oh justus PICKENS [address] MEDICAL OFFICE [facility] 2021-04-08 2021-04-08 Prep For Marybeth MNCHRISTIE 1.2.840.114 [id number] Univers 00:00:00 00:00:00 Surgery Antonio Monroy HEALTH 350.1.13.10 it y of [place] 4.2.7.2.686 Yash as SAUL?BLEA [phone] Oh justus PICKENS [address] [facility] 2021-04-04 2021-04-04 Orders Doctor RUTH 1.2.840.114 [id number] Univers 00:00:00 00:00:00 Only Unassigned, BARB 350.1.13.10 ity of [place] [facility] 4.2.7.2.686 Yash as [phone] [address] 2021-04-04 2021-04-04 Telephone Marybeth MNCHRISTIE 1.2.840.114 [id number] Univers 00:00:00 00:00:00 Antonio MCALLISTER 350.1.13.10 it y of [place] 4.2.7.2.686 Yash as SAUL?BLEA [phone] Oh justus PICKENS [address] [facility] 2021-04-03 2021-04-03 Telephone Marybeth MNCHRISTIE 1.2.840.114 [id number] Univers 00:00:00 00:00:00 Antonio MCALLISTER 350.1.13.10 it y of [place] 4.2.7.2.686 Yash as SAUL?BLEA [phone] Oh justus PICKENS [address] [facility] 2021-04-02 2021-04-02 Letter Marybeth MNCHRISTIE 1.2.425.524 [id number] Univers 00:00:00 00:00:00 (Out) Antonio Monroy HEALTH 350.1.13.10 it y of [place] 4.2.7.2.686 Yash as SAUL?BLEA [phone] Me justus PICKENS [address] MEDICAL OFFICE [facility] 2021-04-01 2021-04-01 Hospital [facility] 1.2.840.114 [id number] Univers 15:05:00 23:59:00 Encounter Antonio Monroy [facility] 350.1.13.10 ity of [place] 4.2.7.2.686 Yash as SAUL?BLEA [phone] Oh justus PICKENS [address] [facility] OFFICE [facility] 2021-04-01 2021-04-01 Outpatient R [facility] [id number] Univers 15:05:00 23:59:00 [facility] 2021-04-01 2021-04-01 Outpatient R [facility] [id number] Univers 14:45:00 16:54:48 [facility] 2021-04-01 2021-04-01 Office [facility] [id number] Univers 14:45:00 16:54:48 Visit [facility] 350.1.13.10 it y of [place] 4.2.7.2.686 Yash as SAUL?BLEA [phone] Oh justus PICKENS [address] [facility] OFFICE [facility] 2021-04-01 2021-04-01 Orders Doctor RUTH 1.2.840.114 [id number] Univers 00:00:00 00:00:00 Only Unassigned, BARB 350.1.13.10 ity of [place] [facility] 4.2.7.2.686 Yash as [phone] [address] 2021-03-22 2021-03-22 Emergency X [facility] ERT [id number] Univers 07:09:00 12:01:00 MAURI gtz [facility] 2021-03-22 2021-03-22 Emergency X [facility] ERT [id number] Univers 07:09:00 12:01:00 MAURI gtz [facility] 2021-03-22 2021-03-22 Emergency X [facility] ERT [id number] Univers 07:09:00 12:01:00 MAURI gtz [facility] 2021-03-22 2021-03-22 Emergency Ortega, [facility] [id number] Univers 07:09:00 12:01:00 Mauri FARRELL 350.1.13.10 i ty piyush ALONSO 4.2.7.2.686 [facility] [phone] [facility] [address] 2020-10-07 2020-10-20 Inpatient EM [id number] [facility] 12:12:00 14:11:00 86 [facility] are [facility] Results Test Description Test Time Test Comments Results Result Comments Source ARTERIAL BLOOD GAS 2020-11-04 06:43:00 Test Item Value Reference Range Interpretation Comme nts ARTERIAL BLOOD GAS PH (test 7.495 7.35-7.45 H code = PHA) ARTERIAL BLOOD GAS PCO2 (test 32.1 mmHg 35-45 L code = PCO2A) ARTERIAL BLOOD GAS PO2 (test 71.2 mmHg 80-100 L code = PO2A) BICARBONATE TOTAL HCO3 (test 24.2 mmol/L 22-26 N code = HCO3) BASE EXCESS (test code = DAV) 1.5 mmol/L See_Comment N [Automated message] The system which ge nerated this result transmit magali reference range: (+/-)2.0 . The reference range was not used to interpret th is result as normal/abnormal . ABG O2 SATURATION (test code = 93.3 % 95.0-100.0 L SATA) ABG TYPE (test code = TYPEA) Arterial ARTERIAL FIO2 (test code = 50.0 % FIO2A) ABG VENT MODE (test code = PRVC MODEA) ABG VENT RESP RATE (test code 15 /MIN = RRA) ABG TIDAL VOLUME (test code = 360.0 ML TIDAL VOLUME) ABG PEEP (test code = PEEP) 5.0 cmH2O ALLENS TEST (test code = Yes ALLENS) TOTAL HGB (test code = THB) 12.6 g/dL 12.0-16.0 N ARTERIAL BLOOD [id number] 06:43:00 Test Item Value Reference Range Interpretation Comments ARTERIAL BLOOD GAS PH 7.495 7.35-7.45 H (test code = PHA) ARTERIAL BLOOD GAS 32.1 mmHg 35-45 L PCO2 (test code = PCO2A) ARTERIAL BLOOD GAS 71.2 mmHg 80-100 L PO2 (test code = PO2A) BICARBONATE TOTAL 24.2 mmol/L 22-26 N HCO3 (test code = HCO3) BASE EXCESS (test 1.5 mmol/L See_Comment N [Automate d message] code = DAV) The system [employer] generated this result transmitted ref erence range: (+/-)2.0 . The reference range was not used to int erpret this result as normal/abnormal . ABG O2 SATURATION 93.3 % 95.0-100.0 L (test code = SATA) ABG TYPE (test code = Arterial TYPEA) ARTERIAL FIO2 (test 50.0 % code = FIO2A) ABG VENT MODE (test PRVC code = MODEA) ABG VENT RESP RATE 15 /MIN (test code = RRA) ABG TIDAL VOLUME 360.0 ML (test code = TIDAL VOLUME) ABG PEEP (test code = 5.0 cmH2O PEEP) ALLENS TEST (test Yes code = ALLENS) TOTAL HGB (test code 12.6 g/dL 12.0-16.0 N = THB) [id number] 07:47:00 Test Item Value Reference Range Interpretation Comments PHOSPHOROUS (test code = PHOS) 5.0 mg/dl 2.5-4.6 H [id number] 07:47:00 Test Item Value Reference Range Interpretation Comments MAGNESIUM (test code = MAG) 2.3 mg/dl 1.8-2.5 N CBC W/AUTO [id number] 05:52:00 Test Item Value Reference Range Interpretation Comments WHITE BLOOD CELL (test code = 12.8 x10 3/uL 3.2-11.5 H WBC) RED BLOOD CELL (test code = 4.45 x10(6)/m 3.70-5.10 N RBC) HEMOGLOBIN (test code = HGB) 12.3 g/dL 12.0-15.0 N HEMATOCRIT (test code = HCT) 37.7 % 35.7-44.8 N MEAN CELL VOLUME (test code = 85 fL 80-100 N MCV) MEAN CELL HGB (test code = MCH) 27.6 pg 26.2-33.8 N MEAN CELL HGB CONCENTRATION 32.6 g/dL 30.0-34.0 N (test code = MCHC) RED CELL DISTRIBUTION WIDTH 12.1 % 11.3-14.5 N (test code = RDW) PLATELET COUNT (test code = 500 x10 3/uL 130-408 H PLT) MEAN PLATELET VOLUME (test code 9.3 fL 8.6-12.6 N = MPV) NEUTROPHIL % (test code = NT%) 74.4 % 40.0-70.0 H IMMATURE GRANULOCYTE % (test 1.3 % 0.0-2.0 N code = IG%) LYMPHOCYTE % (test code = LY%) 13.5 % 20-40 L MONOCYTE % (test code = MO%) 8.6 % 1-10 N EOSINOPHIL % (test code = EO%) 1.7 % 0.0-5.0 N BASOPHIL % (test code = BA%) 0.5 % 0.0-1.0 N NUCLEATED RBC % (test code = 0.0 % 0.0-0.9 N NRBC%) NEUTROPHIL # (test code = NT#) 9.5 x10 3/uL 1.6-7.2 H LYMPHOCYTE # (test code = LY#) 1.73 x10 3/uL 1.1-2.7 N MONOCYTE # (test code = MO#) 1.1 x10 3/uL 0.3-0.8 H EOSINOPHIL # (test code = EO#) 0.2 x10 3/uL 0.0-0.5 N BASOPHIL # (test code = BA#) 0.1 x10 3/uL 0.0-0.1 N BASIC METABOLIC [id number] 05:34:00 Test Item Value Reference Range Interpretation Comments SODIUM (test code = 137 mmol/L 135-145 N NA) POTASSIUM (test code 3.1 mmol/L 3.6-5.0 L = K) CHLORIDE (test code = 92 mmol/L 101-111 L CL) CARBON DIOXIDE (test 31 mmol/L 21-31 N code = CO2) GLUCOSE (test code = 93 mg/dl 70-100 N GLU) BLOOD UREA NITROGEN 33 mg/dl 6-20 H (test code = BUN) GLOMERULAR FILTRATION 31 >60 L The es timated RATE (test code = glomerular filtration GFR) rate is compute d usingpatient ra ce, age (>18), sex, and serum creatinine. If anyof the needed data elements are mi ssing the Laboratory cannot compute an inga mation of the glomerul ar filtration rate . CREATININE (test code 1.77 mg/dL 0.44-1.03 H = CREAT) CALCIUM (test code = 8.7 mg/dL 8.5-10.5 N CA) [id number] 05:30:00 Test Item Value Reference Range Interpretation Comments GLUBED (test code = GLUBED) 91 MG/DL 70-105 N CBC W/AUTO [id number] 05:27:00 Test Item Value Reference Range Interpretation Comments WHITE BLOOD CELL (test code = 12.8 x10 3/uL 3.2-11.5 H WBC) RED BLOOD CELL (test code = 4.45 x10(6)/m 3.70-5.10 N RBC) HEMOGLOBIN (test code = HGB) 12.3 g/dL 12.0-15.0 N HEMATOCRIT (test code = HCT) 37.7 % 35.7-44.8 N MEAN CELL VOLUME (test code = 85 fL 80-100 N MCV) MEAN CELL HGB (test code = MCH) 27.6 pg 26.2-33.8 N MEAN CELL HGB CONCENTRATION 32.6 g/dL 30.0-34.0 N (test code = MCHC) RED CELL DISTRIBUTION WIDTH % 11.3-14.5 (test code = RDW) PLATELET COUNT (test code = x10 3/uL 130-408 PLT) MEAN PLATELET VOLUME (test code 9.3 fL 8.6-12.6 N = MPV) NEUTROPHIL % (test code = NT%) % 40.0-70.0 LYMPHOCYTE % (test code = LY%) % 20-40 MONOCYTE % (test code = MO%) % 1-10 EOSINOPHIL % (test code = EO%) % 0.0-5.0 BASOPHIL % (test code = BA%) % 0.0-1.0 NUCLEATED RBC % (test code = % 0.0-0.9 NRBC%) NEUTROPHIL # (test code = NT#) x10 3/uL 1.6-7.2 LYMPHOCYTE # (test code = LY#) x10 3/uL 1.1-2.7 MONOCYTE # (test code = MO#) x10 3/uL 0.3-0.8 EOSINOPHIL # (test code = EO#) x10 3/uL 0.0-0.5 [id number] 20:33:00 Test Item Value Reference Range Interpretation Comments GLUBED (test code = GLUBED) 108 MG/DL 70-105 H [id number] 15:27:00 Test Item Value Reference Range Interpretation Comments GLUBED (test code = GLUBED) 112 MG/DL 70-105 H [id number] 11:48:00 Test Item Value Reference Range Interpretation Comments GLUBED (test code = GLUBED) 103 MG/DL 70-105 N BASIC METABOLIC [id number] 07:12:00 Test Item Value Reference Range Interpretation Comments SODIUM (test code = 136 mmol/L 135-145 NA) POTASSIUM (test code 3.7 mmol/L 3.6-5.0 N = K) CHLORIDE (test code = 93 mmol/L 101-111 L CL) CARBON DIOXIDE (test 26 mmol/L 21-31 N code = CO2) GLUCOSE (test code = 106 mg/dl 70-100 H GLU) BLOOD UREA NITROGEN 40 mg/dl 6-20 H (test code = BUN) GLOMERULAR FILTRATION 29 >60 L The es timated RATE (test code = glomerular filtration GFR) rate is compute d usingpatient ra ce, age (>18), sex, and serum creatinine. If anyof the needed data elements are mi ssing the Laboratory cannot compute an inga mation of the glomerul ar filtration rate . CREATININE (test code 1.87 mg/dL 0.44-1.03 H = CREAT) CALCIUM (test code = 9.0 mg/dL 8.5-10.5 N CA) [id number] 07:12:00 Test Item Value Reference Range Interpretation Comments MAGNESIUM (test code = MAG) 2.4 mg/dl 1.8-2.5 N [id number] 06:27:00 Test Item Value Reference Range Interpretation Comments GLUBED (test code = GLUBED) 125 MG/DL 70-105 H CBC W/AUTO [id number] 05:28:00 Test Item Value Reference Range Interpretation Comments WHITE BLOOD CELL (test code = 12.2 x10 3/uL 3.2-11.5 H WBC) RED BLOOD CELL (test code = 4.12 x10(6)/m 3.70-5.10 N RBC) HEMOGLOBIN (test code = HGB) 11.3 g/dL 12.0-15.0 L HEMATOCRIT (test code = HCT) 35.4 % 35.7-44.8 L MEAN CELL VOLUME (test code = 86 fL 80-100 N MCV) MEAN CELL HGB (test code = MCH) 27.4 pg 26.2-33.8 N MEAN CELL HGB CONCENTRATION 31.9 g/dL 30.0-34.0 N (test code = MCHC) RED CELL DISTRIBUTION WIDTH 12.5 % 11.3-14.5 N (test code = RDW) PLATELET COUNT (test code = 458 x10 3/uL 130-408 H PLT) MEAN PLATELET VOLUME (test code 9.1 fL 8.6-12.6 N = MPV) WBC [id number] 05:28:00 Test Item Value Reference Range Interpretation Comments TOTAL CELLS COUNTED (test code = 100 #CELLS TCC) SEGMENTED NEUTROPHILS (test code 72 % 43-65 H = SEG) BAND NEUTROPHIL (test code = 3 % 0-1 H BAND) LYMPHOCYTE (test code = LYMPH) 14 % 20.5-45.5 L MONOCYTE (test code = MON) 4 % 5.5-11.7 L EOSINOPHIL (test code = EOS) 1 % 0.9-2.9 N METAMYELOCYTE (test code = META) 3 % 0-0 H MYELOCYTE (test code = MYELO) 3 % 0-0 H BAND ABSOLUTE (test code = 0.37 10 3/uL 0.00-0.70 N BAND#) NEUTROPHIL ABSOLUTE (test code = 8.78 10 3/uL 1.6-7.2 H SEG#) LYMPH ABSOLUTE (test code = 1.7 10 3/uL 1.1-4.8 N LYMPH#) ATYPICAL LYMPH ABSOLUTE (test 0.00 10 3/uL 0.00-0.00 N code = ALYMPH#) MONOCYTE ABSOLUTE (test code = 0.48 10 3/uL 0.3-0.8 N MON#) BASOPHIL ABSOLUTE (test code = 0.00 10 3/uL 0.00-0.1 N BASO#) EOSINOPHIL ABSOLUTE (test code = 0.12 10 3/uL 0.00-0.50 N EOS#) METAMYELOCYTE ABSOLUTE (test 0.37 10 3/uL 0.00-0.00 H code = META#) MYELOCYTE ABSOLUTE (test code = 0.37 10 3/uL 0.00-0.00 H MYELO#) PROMYELOCYTE ABSOLUTE (test code 0.00 10 3/uL 0.00-0.00 N = PROM#) BLASTS ABSOLUTE (test code = 0.00 10 3/uL 0.00-0.00 N BLAST#) OTHER CELLS ABSOLUTE (test code 0.00 10 3/uL 0.00-0.00 N = OCT#) RBC MORPHOLOGY COMMENT (test Normal NORMAL code = MOC) PLATELET MORPHOLOGY (test code = Normal NORMAL PLTMORPH) BASIC METABOLIC [id number] 04:58:00 Test Item Value Reference Range Interpretation Comments SODIUM (test code = 144 mmol/L 135-145 N NA) POTASSIUM (test code 3.9 mmol/L 3.6-5.0 N = K) CHLORIDE (test code = 95 mmol/L 101-111 L CL) CARBON DIOXIDE (test 34 mmol/L 21-31 H code = CO2) GLUCOSE (test code = 134 mg/dl 70-100 H GLU) BLOOD UREA NITROGEN 46 mg/dl 6-20 H (test code = BUN) GLOMERULAR FILTRATION 26 >60 L The es timated RATE (test code = glomerular filtration GFR) rate is compute d usingpatient ra ce, age (>18), sex, and serum creatinine. If anyof the needed data elements are mi ssing the Laboratory cannot compute an inga mation of the glomerul ar filtration rate . CREATININE (test code 2.06 mg/dL 0.44-1.03 H = CREAT) CALCIUM (test code = 8.8 mg/dL 8.5-10.5 N CA) [id number] 04:58:00 Test Item Value Reference Range Interpretation Comments PHOSPHOROUS (test code = PHOS) 5.9 mg/dl 2.5-4.6 H [id number] 04:58:00 Test Item Value Reference Range Interpretation Comments MAGNESIUM (test code = MAG) 2.4 mg/dl 1.8-2.5 N CBC W/AUTO [id number] 04:40:00 Test Item Value Reference Range Interpretation Comments WHITE BLOOD CELL (test code = 12.2 x10 3/uL 3.2-11.5 H WBC) RED BLOOD CELL (test code = 4.12 x10(6)/m 3.70-5.10 N RBC) HEMOGLOBIN (test code = HGB) 11.3 g/dL 12.0-15.0 L HEMATOCRIT (test code = HCT) 35.4 % 35.7-44.8 L MEAN CELL VOLUME (test code = 86 fL 80-100 N MCV) MEAN CELL HGB (test code = MCH) 27.4 pg 26.2-33.8 N MEAN CELL HGB CONCENTRATION 31.9 g/dL 30.0-34.0 N (test code = MCHC) RED CELL DISTRIBUTION WIDTH 12.5 % 11.3-14.5 N (test code = RDW) PLATELET COUNT (test code = 458 x10 3/uL 130-408 H PLT) MEAN PLATELET VOLUME (test code 9.1 fL 8.6-12.6 N = MPV) WBC [id number] 04:40:00 Test Item Value Reference Range Interpretation Comments TOTAL CELLS COUNTED (test code = TCC) #CELLS RBC MORPHOLOGY COMMENT (test code = NORMAL MOC) PLATELET MORPHOLOGY (test code = NORMAL PLTMORPH) CBC W/AUTO [id number] 04:40:00 Test Item Value Reference Range Interpretation Comments WHITE BLOOD CELL (test code = 12.2 x10 3/uL 3.2-11.5 H WBC) RED BLOOD CELL (test code = 4.12 x10(6)/m 3.70-5.10 N RBC) HEMOGLOBIN (test code = HGB) 11.3 g/dL 12.0-15.0 L HEMATOCRIT (test code = HCT) 35.4 % 35.7-44.8 L MEAN CELL VOLUME (test code = 86 fL 80-100 N MCV) MEAN CELL HGB (test code = MCH) 27.4 pg 26.2-33.8 N MEAN CELL HGB CONCENTRATION 31.9 g/dL 30.0-34.0 N (test code = MCHC) RED CELL DISTRIBUTION WIDTH 12.5 % 11.3-14.5 N (test code = RDW) PLATELET COUNT (test code = 458 x10 3/uL 130-408 H PLT) MEAN PLATELET VOLUME (test code 9.1 fL 8.6-12.6 N = MPV) WBC [id number] 04:40:00 Test Item Value Reference Range Interpretation Comments TOTAL CELLS COUNTED (test code = TCC) #CELLS RBC MORPHOLOGY COMMENT (test code = NORMAL MOC) PLATELET MORPHOLOGY (test code = NORMAL PLTMORPH) [id number] 00:41:00 Test Item Value Reference Range Interpretation Comments GLUBED (test code = GLUBED) 143 MG/DL 70-105 H [id number] 17:06:00 Test Item Value Reference Range Interpretation Comments GLUBED (test code = GLUBED) 113 MG/DL 70-105 H [id number] 12:28:00 Test Item Value Reference Range Interpretation Comments GLUBED (test code = GLUBED) 99 MG/DL 70-105 N CBC W/AUTO [id number] 07:23:00 Test Item Value Reference Range Interpretation Comments WHITE BLOOD CELL (test code = 12.4 x10 3/uL 3.2-11.5 H WBC) RED BLOOD CELL (test code = 3.81 x10(6)/m 3.70-5.10 N RBC) HEMOGLOBIN (test code = HGB) 10.5 g/dL 12.0-15.0 L HEMATOCRIT (test code = HCT) 33.0 % 35.7-44.8 L MEAN CELL VOLUME (test code = 87 fL 80-100 N MCV) MEAN CELL HGB (test code = MCH) 27.6 pg 26.2-33.8 N MEAN CELL HGB CONCENTRATION 31.8 g/dL 30.0-34.0 N (test code = MCHC) RED CELL DISTRIBUTION WIDTH 13.2 % 11.3-14.5 N (test code = RDW) PLATELET COUNT (test code = 479 x10 3/uL 130-408 H PLT) MEAN PLATELET VOLUME (test code 9.1 fL 8.6-12.6 N = MPV) WBC [id number] 07:23:00 Test Item Value Reference Range Interpretation Comments TOTAL CELLS COUNTED (test code = 100 #CELLS TCC) SEGMENTED NEUTROPHILS (test code 64 % 43-65 N = SEG) LYMPHOCYTE (test code = LYMPH) 17 % 20.5-45.5 L MONOCYTE (test code = MON) 13 % 5.5-11.7 H EOSINOPHIL (test code = EOS) 6 % 0.9-2.9 H BAND ABSOLUTE (test code = 0.00 10 3/uL 0.00-0.70 N BAND#) NEUTROPHIL ABSOLUTE (test code = 7.94 10 3/uL 1.6-7.2 H SEG#) LYMPH ABSOLUTE (test code = 2.1 10 3/uL 1.1-4.8 N LYMPH#) ATYPICAL LYMPH ABSOLUTE (test 0.00 10 3/uL 0.00-0.00 N code = ALYMPH#) MONOCYTE ABSOLUTE (test code = 1.61 10 3/uL 0.3-0.8 H MON#) BASOPHIL ABSOLUTE (test code = 0.00 10 3/uL 0.00-0.1 N BASO#) EOSINOPHIL ABSOLUTE (test code = 0.74 10 3/uL 0.00-0.50 H EOS#) METAMYELOCYTE ABSOLUTE (test 0.00 10 3/uL 0.00-0.00 N code = META#) MYELOCYTE ABSOLUTE (test code = 0.00 10 3/uL 0.00-0.00 N MYELO#) PROMYELOCYTE ABSOLUTE (test code 0.00 10 3/uL 0.00-0.00 N = PROM#) BLASTS ABSOLUTE (test code = 0.00 10 3/uL 0.00-0.00 N BLAST#) OTHER CELLS ABSOLUTE (test code 0.00 10 3/uL 0.00-0.00 N = OCT#) RBC MORPHOLOGY COMMENT (test Normal NORMAL code = MOC) PLATELET MORPHOLOGY (test code = Normal NORMAL PLTMORPH) ARTERIAL BLOOD [id number] 04:55:00 Test Item Value Reference Range Interpretation Comments ARTERIAL BLOOD GAS PH 7.464 7.35-7.45 H (test code = PHA) ARTERIAL BLOOD GAS 47.0 mmHg 35-45 H PCO2 (test code = PCO2A) ARTERIAL BLOOD GAS 131.9 mmHg 80-100 H PO2 (test code = PO2A) BICARBONATE TOTAL 33.0 mmol/L 22-26 H HCO3 (test code = HCO3) BASE EXCESS (test 8.2 mmol/L See_Comment H [Automate d message] code = DAV) The system [employer] generated this result transmitted ref erence range: (+/-)2.0 . The reference range was not used to int erpret this result as normal/abnormal . ABG O2 SATURATION 98.3 % 95.0-100.0 N (test code = SATA) ABG TYPE (test code = Arterial TYPEA) ARTERIAL FIO2 (test 40.0 % code = FIO2A) ABG VENT MODE (test Ventilator code = MODEA) ABG VENT RESP RATE 22 /MIN (test code = RRA) ABG PEEP (test code = 8.0 cmH2O PEEP) ABG SITE (test code = Left Radial SITEA) ALLENS TEST (test Yes code = ALLENS) TOTAL HGB (test code 11.4 g/dL 12.0-16.0 L = THB) ARTERIAL BLOOD [id number] 04:55:00 Test Item Value Reference Range Interpretation Comments ARTERIAL BLOOD GAS PH 7.464 7.35-7.45 H (test code = PHA) ARTERIAL BLOOD GAS 47.0 mmHg 35-45 H PCO2 (test code = PCO2A) ARTERIAL BLOOD GAS 131.9 mmHg 80-100 H PO2 (test code = PO2A) BICARBONATE TOTAL 33.0 mmol/L 22-26 H HCO3 (test code = HCO3) BASE EXCESS (test 8.2 mmol/L See_Comment H [Automate d message] code = DAV) The system [employer] generated this result transmitted ref erence range: (+/-)2.0 . The reference range was not used to int erpret this result as normal/abnormal . ABG O2 SATURATION 98.3 % 95.0-100.0 N (test code = SATA) ABG TYPE (test code = Arterial TYPEA) ARTERIAL FIO2 (test 40.0 % code = FIO2A) ABG VENT MODE (test Ventilator code = MODEA) ABG VENT RESP RATE 22 /MIN (test code = RRA) ABG PEEP (test code = 8.0 cmH2O PEEP) ABG SITE (test code = Left Radial SITEA) ALLENS TEST (test Yes code = ALLENS) TOTAL HGB (test code 11.4 g/dL 12.0-16.0 L = THB) BASIC METABOLIC [id number] 04:44:00 Test Item Value Reference Range Interpretation Comments SODIUM (test code = 147 mmol/L 135-145 H NA) POTASSIUM (test code 4.0 mmol/L 3.6-5.0 N = K) CHLORIDE (test code = 97 mmol/L 101-111 L CL) CARBON DIOXIDE (test 34 mmol/L 21-31 H code = CO2) GLUCOSE (test code = 109 mg/dl 70-100 H GLU) BLOOD UREA NITROGEN 52 mg/dl 6-20 H (test code = BUN) GLOMERULAR FILTRATION 23 >60 L The es timated RATE (test code = glomerular filtration GFR) rate is compute d usingpatient ra ce, age (>18), sex, and serum creatinine. If anyof the needed data elements are mi ssing the Laboratory cannot compute an inga mation of the glomerul ar filtration rate . CREATININE (test code 2.29 mg/dL 0.44-1.03 H = CREAT) CALCIUM (test code = 8.6 mg/dL 8.5-10.5 N CA) [id number] 04:44:00 Test Item Value Reference Range Interpretation Comments TRIGLYCERIDES (test code = TRIG) 206 mg/dL 35-160 H [id number] 04:44:00 Test Item Value Reference Range Interpretation Comments MAGNESIUM (test code = MAG) 2.4 mg/dl 1.8-2.5 N VANCOMYCIN [id number] 04:39:00 Test Item Value Reference Range Interpretation Comments VANCOMYCIN TROUGH 20.3 ug/ml 10.0-20.0 H Please ref er to (test code = VANCT) Medicati on Administration Record (MAR) forlast d ose date and time. CBC W/AUTO [id number] 04:39:00 Test Item Value Reference Range Interpretation Comments WHITE BLOOD CELL (test code = 12.4 x10 3/uL 3.2-11.5 H WBC) RED BLOOD CELL (test code = 3.81 x10(6)/m 3.70-5.10 N RBC) HEMOGLOBIN (test code = HGB) 10.5 g/dL 12.0-15.0 L HEMATOCRIT (test code = HCT) 33.0 % 35.7-44.8 L MEAN CELL VOLUME (test code = 87 fL 80-100 N MCV) MEAN CELL HGB (test code = MCH) 27.6 pg 26.2-33.8 N MEAN CELL HGB CONCENTRATION 31.8 g/dL 30.0-34.0 N (test code = MCHC) RED CELL DISTRIBUTION WIDTH 13.2 % 11.3-14.5 N (test code = RDW) PLATELET COUNT (test code = 479 x10 3/uL 130-408 H PLT) MEAN PLATELET VOLUME (test code 9.1 fL 8.6-12.6 N = MPV) WBC [id number] 04:39:00 Test Item Value Reference Range Interpretation Comments TOTAL CELLS COUNTED (test code = TCC) #CELLS RBC MORPHOLOGY COMMENT (test code = NORMAL MOC) PLATELET MORPHOLOGY (test code = NORMAL PLTMORPH) CBC W/AUTO [id number] 04:39:00 Test Item Value Reference Range Interpretation Comments WHITE BLOOD CELL (test code = 12.4 x10 3/uL 3.2-11.5 H WBC) RED BLOOD CELL (test code = 3.81 x10(6)/m 3.70-5.10 N RBC) HEMOGLOBIN (test code = HGB) 10.5 g/dL 12.0-15.0 L HEMATOCRIT (test code = HCT) 33.0 % 35.7-44.8 L MEAN CELL VOLUME (test code = 87 fL 80-100 N MCV) MEAN CELL HGB (test code = MCH) 27.6 pg 26.2-33.8 N MEAN CELL HGB CONCENTRATION 31.8 g/dL 30.0-34.0 N (test code = MCHC) RED CELL DISTRIBUTION WIDTH 13.2 % 11.3-14.5 N (test code = RDW) PLATELET COUNT (test code = 479 x10 3/uL 130-408 H PLT) MEAN PLATELET VOLUME (test code 9.1 fL 8.6-12.6 N = MPV) WBC [id number] 04:39:00 Test Item Value Reference Range Interpretation Comments TOTAL CELLS COUNTED (test code = TCC) #CELLS RBC MORPHOLOGY COMMENT (test code = NORMAL MOC) PLATELET MORPHOLOGY (test code = NORMAL PLTMORPH) [id number] 23:56:00 Test Item Value Reference Range Interpretation Comments GLUBED (test code = GLUBED) 101 MG/DL 70-105 N [id number] 17:37:00 Test Item Value Reference Range Interpretation Comments GLUBED (test code = GLUBED) 113 MG/DL 70-105 H - XR CHEST 1 [id number] 11:57:00 [facility] : 1965 Sex: FPatientName: ANETTE ESPITIA Unit No: [id number] EXAMS: CPT: [id number] XR CHEST 1 V [id number] CHEST RADIOGRAPH - 1view CLINICAL HISTORY: intubated. COMPARISON: October 14, 2020. FINDINGS: Patient is rotated. Ventilatory tube and feeding tube again seen. Heart size normal. Vascular congestion, bibasilar pulmonary opacities and left pleural effusion. Findings are relatively stable taking into account technical differences. IMPRESSION: Vascular congestion, pulmonary opacities and small left pleural effusion. Findingsare relatively stable. Recommend continued follow-up. at 1157 Reported and signed by: Tim Rushing MD CC: Vin Horner MD; Diana Salcido echnologist: Page Moncada Time: DAP (Gy m2): Air Kerma (mGy): Trscr Dt/Tm: 10/16/2020 (1157) by:RossKYCindy Orig Print D/T: S: 10/16/2020 (1200) BATCH NO: N/A Name: ANETTE ESPITIA [facility] Phys: Vin Siddiqi MD [address] [place] : 1965 Age: 55 Sex: F [place], [place] [address] Loc: N.[id number] 1 Exam Date: 10/16/2020 Status: ADM IN PH: FAX: PAGE 1 Signed [id number] 11:26:00 Test Item Value Reference Range Interpretation Comments GLUBED (test code = GLUBED) 99 MG/DL 70-105 N [id number] 07:43:00 Test Item Value Reference Range Interpretation Comments GLUBED (test code = GLUBED) 98 MG/DL 70-105 N BASIC METABOLIC [id number] 05:54:00 Test Item Value Reference Range Interpretation Comments SODIUM (test code = 146 mmol/L 135-145 H NA) POTASSIUM (test code 3.8 mmol/L 3.6-5.0 N = K) CHLORIDE (test code = 96 mmol/L 101-111 L CL) CARBON DIOXIDE (test 36 mmol/L 21-31 H code = CO2) GLUCOSE (test code = 94 mg/dl 70-100 N GLU) BLOOD UREA NITROGEN 48 mg/dl 6-20 H (test code = BUN) GLOMERULAR FILTRATION 25 >60 L The es timated RATE (test code = glomerular filtration GFR) rate is compute d usingpatient ra ce, age (>18), sex, and serum creatinine. If anyof the needed data elements are mi ssing the Laboratory cannot compute an inga mation of the glomerul ar filtration rate . CREATININE (test code 2.15 mg/dL 0.44-1.03 H = CREAT) CALCIUM (test code = 8.7 mg/dL 8.5-10.5 N CA) [id number] 05:54:00 Test Item Value Reference Range Interpretation Comments PHOSPHOROUS (test code = PHOS) 5.4 mg/dl 2.5-4.6 H [id number] 05:54:00 Test Item Value Reference Range Interpretation Comments MAGNESIUM (test code = MAG) 2.5 mg/dl 1.8-2.5 N CBC W/AUTO [id number] 05:42:00 Test Item Value Reference Range Interpretation Comments WHITE BLOOD CELL (test code = 9.9 x10 3/uL 3.2-11.5 N WBC) RED BLOOD CELL (test code = 3.78 x10(6)/m 3.70-5.10 N RBC) HEMOGLOBIN (test code = HGB) 10.3 g/dL 12.0-15.0 L HEMATOCRIT (test code = HCT) 32.3 % 35.7-44.8 L MEAN CELL VOLUME (test code = 85 fL 80-100 N MCV) MEAN CELL HGB (test code = MCH) 27.2 pg 26.2-33.8 N MEAN CELL HGB CONCENTRATION 31.9 g/dL 30.0-34.0 N (test code = MCHC) RED CELL DISTRIBUTION WIDTH 13.0 % 11.3-14.5 N (test code = RDW) PLATELET COUNT (test code = 456 x10 3/uL 130-408 H PLT) MEAN PLATELET VOLUME (test code 8.9 fL 8.6-12.6 N = MPV) WBC [id number] 05:42:00 Test Item Value Reference Range Interpretation Comments TOTAL CELLS COUNTED (test code = 100 #CELLS TCC) SEGMENTED NEUTROPHILS (test code 56 % 43-65 N = SEG) BAND NEUTROPHIL (test code = 2 % 0-1 H BAND) LYMPHOCYTE (test code = LYMPH) 21 % 20.5-45.5 N MONOCYTE (test code = MON) 11 % 5.5-11.7 N EOSINOPHIL (test code = EOS) 5 % 0.9-2.9 H BASOPHIL (test code = BASO) 1 % 0.2-1.0 N METAMYELOCYTE (test code = META) 2 % 0-0 H MYELOCYTE (test code = MYELO) 2 % 0-0 H BAND ABSOLUTE (test code = 0.20 10 3/uL 0.00-0.70 N BAND#) NEUTROPHIL ABSOLUTE (test code = 5.54 10 3/uL 1.6-7.2 N SEG#) LYMPH ABSOLUTE (test code = 2.1 10 3/uL 1.1-4.8 N LYMPH#) ATYPICAL LYMPH ABSOLUTE (test 0.00 10 3/uL 0.00-0.00 N code = ALYMPH#) MONOCYTE ABSOLUTE (test code = 1.08 10 3/uL 0.3-0.8 H MON#) BASOPHIL ABSOLUTE (test code = 0.09 10 3/uL 0.00-0.1 N BASO#) EOSINOPHIL ABSOLUTE (test code = 0.49 10 3/uL 0.00-0.50 N EOS#) METAMYELOCYTE ABSOLUTE (test 0.20 10 3/uL 0.00-0.00 H code = META#) MYELOCYTE ABSOLUTE (test code = 0.20 10 3/uL 0.00-0.00 H MYELO#) PROMYELOCYTE ABSOLUTE (test code 0.00 10 3/uL 0.00-0.00 N = PROM#) BLASTS ABSOLUTE (test code = 0.00 10 3/uL 0.00-0.00 N BLAST#) OTHER CELLS ABSOLUTE (test code 0.00 10 3/uL 0.00-0.00 N = OCT#) RBC MORPHOLOGY COMMENT (test Normal NORMAL code = MOC) PLATELET MORPHOLOGY (test code = Normal NORMAL PLTMORPH) CBC W/AUTO [id number] 03:57:00 Test Item Value Reference Range Interpretation Comments WHITE BLOOD CELL (test code = 9.9 x10 3/uL 3.2-11.5 N WBC) RED BLOOD CELL (test code = 3.78 x10(6)/m 3.70-5.10 N RBC) HEMOGLOBIN (test code = HGB) 10.3 g/dL 12.0-15.0 L HEMATOCRIT (test code = HCT) 32.3 % 35.7-44.8 L MEAN CELL VOLUME (test code = 85 fL 80-100 N MCV) MEAN CELL HGB (test code = MCH) 27.2 pg 26.2-33.8 N MEAN CELL HGB CONCENTRATION 31.9 g/dL 30.0-34.0 N (test code = MCHC) RED CELL DISTRIBUTION WIDTH 13.0 % 11.3-14.5 N (test code = RDW) PLATELET COUNT (test code = 456 x10 3/uL 130-408 H PLT) MEAN PLATELET VOLUME (test code 8.9 fL 8.6-12.6 N = MPV) WBC [id number] 03:57:00 Test Item Value Reference Range Interpretation Comments TOTAL CELLS COUNTED (test code = TCC) #CELLS RBC MORPHOLOGY COMMENT (test code = NORMAL MOC) PLATELET MORPHOLOGY (test code = NORMAL PLTMORPH) CBC W/AUTO [id number] 03:57:00 Test Item Value Reference Range Interpretation Comments WHITE BLOOD CELL (test code = 9.9 x10 3/uL 3.2-11.5 N WBC) RED BLOOD CELL (test code = 3.78 x10(6)/m 3.70-5.10 N RBC) HEMOGLOBIN (test code = HGB) 10.3 g/dL 12.0-15.0 L HEMATOCRIT (test code = HCT) 32.3 % 35.7-44.8 L MEAN CELL VOLUME (test code = 85 fL 80-100 N MCV) MEAN CELL HGB (test code = MCH) 27.2 pg 26.2-33.8 N MEAN CELL HGB CONCENTRATION 31.9 g/dL 30.0-34.0 N (test code = MCHC) RED CELL DISTRIBUTION WIDTH 13.0 % 11.3-14.5 N (test code = RDW) PLATELET COUNT (test code = 456 x10 3/uL 130-408 H PLT) MEAN PLATELET VOLUME (test code 8.9 fL 8.6-12.6 N = MPV) WBC [id number] 03:57:00 Test Item Value Reference Range Interpretation Comments TOTAL CELLS COUNTED (test code = TCC) #CELLS RBC MORPHOLOGY COMMENT (test code = NORMAL MOC) PLATELET MORPHOLOGY (test code = NORMAL PLTMORPH) [id number] 03:15:00 Test Item Value Reference Range Interpretation Comments GLUBED (test code = GLUBED) 96 MG/DL 70-105 N [id number] 17:29:00 Test Item Value Reference Range Interpretation Comments GLUBED (test code = GLUBED) 114 MG/DL 70-105 H [id number] 08:37:00 Test Item Value Reference Range Interpretation Comments GLUBED (test code = GLUBED) 80 MG/DL 70-105 N [id number] 08:35:00 Test Item Value Reference Range Interpretation Comments GLUBED (test code = GLUBED) 76 MG/DL 70-105 N [id number] 08:35:00 Test Item Value Reference Range Interpretation Comments GLUBED (test code = GLUBED) 78 MG/DL 70-105 N [id number] 05:21:00 Test Item Value Reference Range Interpretation Comments GLUBED (test code = GLUBED) 89 MG/DL 70-105 N CALCIUM [id number] 04:37:00 Test Item Value Reference Range Interpretation Comments CALCIUM IONIZED (test code = DEMOND) 1.18 mmol/L 1.13-1.32 N BASIC METABOLIC [id number] 04:34:00 Test Item Value Reference Range Interpretation Comments SODIUM (test code = 143 mmol/L 135-145 N NA) POTASSIUM (test code 3.2 mmol/L 3.6-5.0 L = K) CHLORIDE (test code = 94 mmol/L 101-111 L CL) CARBON DIOXIDE (test 36 mmol/L 21-31 H code = CO2) GLUCOSE (test code = 101 mg/dl 70-100 H GLU) BLOOD UREA NITROGEN 43 mg/dl 6-20 H (test code = BUN) GLOMERULAR FILTRATION 24 >60 L The es timated RATE (test code = glomerular filtration GFR) rate is compute d usingpatient ra ce, age (>18), sex, and serum creatinine. If anyof the needed data elements are mi ssing the Laboratory cannot compute an inga mation of the glomerul ar filtration rate . CREATININE (test code 2.20 mg/dL 0.44-1.03 H = CREAT) CALCIUM (test code = 8.6 mg/dL 8.5-10.5 N CA) [id number] 04:34:00 Test Item Value Reference Range Interpretation Comments PHOSPHOROUS (test code = PHOS) 3.5 mg/dl 2.5-4.6 N [id number] 04:34:00 Test Item Value Reference Range Interpretation Comments MAGNESIUM (test code = MAG) 2.0 mg/dl 1.8-2.5 N CBC W/AUTO [id number] 04:30:00 Test Item Value Reference Range Interpretation Comments WHITE BLOOD CELL (test code = 7.8 x10 3/uL 3.2-11.5 N WBC) RED BLOOD CELL (test code = 3.63 x10(6)/m 3.70-5.10 L RBC) HEMOGLOBIN (test code = HGB) 9.8 g/dL 12.0-15.0 L HEMATOCRIT (test code = HCT) 30.4 % 35.7-44.8 L MEAN CELL VOLUME (test code = 84 fL 80-100 N MCV) MEAN CELL HGB (test code = MCH) 27.0 pg 26.2-33.8 N MEAN CELL HGB CONCENTRATION 32.2 g/dL 30.0-34.0 N (test code = MCHC) RED CELL DISTRIBUTION WIDTH 12.4 % 11.3-14.5 N (test code = RDW) PLATELET COUNT (test code = 435 x10 3/uL 130-408 H PLT) MEAN PLATELET VOLUME (test code 8.9 fL 8.6-12.6 N = MPV) WBC [id number] 04:30:00 Test Item Value Reference Range Interpretation Comments TOTAL CELLS COUNTED (test code = 100 #CELLS TCC) SEGMENTED NEUTROPHILS (test code 52 % 43-65 N = SEG) LYMPHOCYTE (test code = LYMPH) 32 % 20.5-45.5 N MONOCYTE (test code = MON) 11 % 5.5-11.7 N METAMYELOCYTE (test code = META) 1 % 0-0 H MYELOCYTE (test code = MYELO) 4 % 0-0 H BAND ABSOLUTE (test code = 0.00 10 3/uL 0.00-0.70 N BAND#) NEUTROPHIL ABSOLUTE (test code = 4.06 10 3/uL 1.6-7.2 N SEG#) LYMPH ABSOLUTE (test code = 2.5 10 3/uL 1.1-4.8 N LYMPH#) ATYPICAL LYMPH ABSOLUTE (test 0.00 10 3/uL 0.00-0.00 N code = ALYMPH#) MONOCYTE ABSOLUTE (test code = 0.85 10 3/uL 0.3-0.8 H MON#) BASOPHIL ABSOLUTE (test code = 0.00 10 3/uL 0.00-0.1 N BASO#) EOSINOPHIL ABSOLUTE (test code = 0.00 10 3/uL 0.00-0.50 N EOS#) METAMYELOCYTE ABSOLUTE (test 0.08 10 3/uL 0.00-0.00 H code = META#) MYELOCYTE ABSOLUTE (test code = 0.31 10 3/uL 0.00-0.00 H MYELO#) PROMYELOCYTE ABSOLUTE (test code 0.00 10 3/uL 0.00-0.00 N = PROM#) BLASTS ABSOLUTE (test code = 0.00 10 3/uL 0.00-0.00 N BLAST#) OTHER CELLS ABSOLUTE (test code 0.00 10 3/uL 0.00-0.00 N = OCT#) RBC MORPHOLOGY COMMENT (test Normal NORMAL code = MOC) PLATELET MORPHOLOGY (test code = Normal NORMAL PLTMORPH) CBC W/AUTO [id number] 04:14:00 Test Item Value Reference Range Interpretation Comments WHITE BLOOD CELL (test code = 7.8 x10 3/uL 3.2-11.5 N WBC) RED BLOOD CELL (test code = 3.63 x10(6)/m 3.70-5.10 L RBC) HEMOGLOBIN (test code = HGB) 9.8 g/dL 12.0-15.0 L HEMATOCRIT (test code = HCT) 30.4 % 35.7-44.8 L MEAN CELL VOLUME (test code = 84 fL 80-100 N MCV) MEAN CELL HGB (test code = MCH) 27.0 pg 26.2-33.8 N MEAN CELL HGB CONCENTRATION 32.2 g/dL 30.0-34.0 N (test code = MCHC) RED CELL DISTRIBUTION WIDTH 12.4 % 11.3-14.5 N (test code = RDW) PLATELET COUNT (test code = 435 x10 3/uL 130-408 H PLT) MEAN PLATELET VOLUME (test code 8.9 fL 8.6-12.6 N = MPV) WBC [id number] 04:14:00 Test Item Value Reference Range Interpretation Comments TOTAL CELLS COUNTED (test code = TCC) #CELLS RBC MORPHOLOGY COMMENT (test code = NORMAL MOC) PLATELET MORPHOLOGY (test code = NORMAL PLTMORPH) CBC W/AUTO [id number] 04:14:00 Test Item Value Reference Range Interpretation Comments WHITE BLOOD CELL (test code = 7.8 x10 3/uL 3.2-11.5 N WBC) RED BLOOD CELL (test code = 3.63 x10(6)/m 3.70-5.10 L RBC) HEMOGLOBIN (test code = HGB) 9.8 g/dL 12.0-15.0 L HEMATOCRIT (test code = HCT) 30.4 % 35.7-44.8 L MEAN CELL VOLUME (test code = 84 fL 80-100 N MCV) MEAN CELL HGB (test code = MCH) 27.0 pg 26.2-33.8 N MEAN CELL HGB CONCENTRATION 32.2 g/dL 30.0-34.0 N (test code = MCHC) RED CELL DISTRIBUTION WIDTH 12.4 % 11.3-14.5 N (test code = RDW) PLATELET COUNT (test code = 435 x10 3/uL 130-408 H PLT) MEAN PLATELET VOLUME (test code 8.9 fL 8.6-12.6 N = MPV) WBC [id number] 04:14:00 Test Item Value Reference Range Interpretation Comments TOTAL CELLS COUNTED (test code = TCC) #CELLS RBC MORPHOLOGY COMMENT (test code = NORMAL MOC) PLATELET MORPHOLOGY (test code = NORMAL PLTMORPH) ARTERIAL BLOOD [id number] 04:13:00 Test Item Value Reference Range Interpretation Comments ARTERIAL BLOOD GAS PH 7.522 7.35-7.45 H (test code = PHA) ARTERIAL BLOOD GAS 41.5 mmHg 35-45 N PCO2 (test code = PCO2A) ARTERIAL BLOOD GAS 91.2 mmHg 80-100 N PO2 (test code = PO2A) BICARBONATE TOTAL 33.3 mmol/L 22-26 H HCO3 (test code = HCO3) BASE EXCESS (test 9.6 mmol/L See_Comment H [Automate d message] code = DAV) The system [employer] generated this result transmitted ref erence range: (+/-)2.0 . The reference range was not used to int erpret this result as normal/abnormal . ABG O2 SATURATION 96.8 % 95.0-100.0 N (test code = SATA) ABG TYPE (test code = Arterial TYPEA) ARTERIAL FIO2 (test 40.0 % code = FIO2A) ABG VENT MODE (test PC code = MODEA) ABG VENT RESP RATE 22 /MIN (test code = RRA) ABG PEEP (test code = 8.0 cmH2O PEEP) ABG SITE (test code = Left Radial SITEA) ALLENS TEST (test Yes code = ALLENS) TOTAL HGB (test code 11.1 g/dL 12.0-16.0 L = THB) ARTERIAL BLOOD [id number] 04:13:00 Test Item Value Reference Range Interpretation Comments ARTERIAL BLOOD GAS PH 7.522 7.35-7.45 H (test code = PHA) ARTERIAL BLOOD GAS 41.5 mmHg 35-45 N PCO2 (test code = PCO2A) ARTERIAL BLOOD GAS 91.2 mmHg 80-100 N PO2 (test code = PO2A) BICARBONATE TOTAL 33.3 mmol/L 22-26 H HCO3 (test code = HCO3) BASE EXCESS (test 9.6 mmol/L See_Comment H [Automate d message] code = DVA) The system [employer] generated this result transmitted ref erence range: (+/-)2.0 . The reference range was not used to int erpret this result as normal/abnormal . ABG O2 SATURATION 96.8 % 95.0-100.0 N (test code = SATA) ABG TYPE (test code = Arterial TYPEA) ARTERIAL FIO2 (test 40.0 % code = FIO2A) ABG VENT MODE (test PC code = MODEA) ABG VENT RESP RATE 22 /MIN (test code = RRA) ABG PEEP (test code = 8.0 cmH2O PEEP) ABG SITE (test code = Left Radial SITEA) ALLENS TEST (test Yes code = ALLENS) TOTAL HGB (test code 11.1 g/dL 12.0-16.0 L = THB) [id number] 16:54:00 Test Item Value Reference Range Interpretation Comments GLUBED (test code = GLUBED) 101 MG/DL 70-105 N [id number] 13:27:00 Test Item Value Reference Range Interpretation Comments POTASSIUM (test code 2.9 mmol/L 3.6-5.0 LL Critica l Value = K) reported toFirs t Name:DELIA Porfirio ast Name:LORELEI GUERDA READ BACK AND VERIFIEDby MARYAM VÁSQUEZ, on 10/14/20, @ 4724. [id number] 12:45:00 Test Item Value Reference Range Interpretation Comments GLUBED (test code = GLUBED) 119 MG/DL 70-105 H UR SODIUM [id number] 11:42:00 Test Item Value Reference Range Interpretation Comments UR SODIUM RANDOM 99 mmol/L No Normal R jorge (test code = RADHA) establishe d. UR CHLORIDE [id number] 11:42:00 Test Item Value Reference Range Interpretation Comments UR CHLORIDE RANDOM (test code = 115 mmol/L 15-300 N CLU) UR CREATININE [id number] 11:42:00 Test Item Value Reference Range Interpretation Comments UR CREATININE RANDOM (test code = 20.69 mg/dL 40-300 L CREATU) - XR CHEST 1 [id number] 11:08:00 [facility] : 1965 Sex: FPatientName: ANETTE ESPITIA Unit No: [id number] EXAMS: CPT: [id number] XR CHEST 1 V [id number] CHEST, 1 VIEW, AP PORTABLE: HISTORY: Expiratory failure, amlodipine overdose COMPARISON: Chest x-ray dated 10/13/2020 FINDINGS: The tip of the ET tube is 4.9 cm above the van. An enteric tube is seen crossing the chest to enter the stomach although the tip is not imaged epidural electrodes overlie the thoracic spine. Central vascular congestion is again noted relatively unchanged over 10/13/2020. There is diffuse haziness in both hemithoraces, especially on the right suggesting layering pleural effusions. The cardiac silhouette is normal in size. No pneumothorax. IMPRESSION: No significant interval change is 10/13/2020. C entral vascular congestion and bilateral pleural effusions. at 1108 Reported and signed by: Vishnu Abreu MD CC: Diana Burrows MD; Alon Mclaughlin MD Technologist: ALLY Moncada Time: DAP (Gy m2): Air Kerma (mGy): Trscr Dt/Tm: 10/14/2020 (1108) by:[email or web address] Orig Print D/T: S: 10/14/2020 (1112) BATCH NO: N/A Name: ANETTE ESPITIA [facility] Phys: GOMEZ.Erika - Roula Mclaughlin Ms, MD [address] [facility] : 1965 Age: 55 Sex: F [place], [place] [address] Loc: N.2 1 Exam Date: 10/14/2020 Status: ADM IN PH: FAX: PAGE 1 Signed [id number] 06:26:00 Test Item Value Reference Range Interpretation Comments GLUBED (test code = GLUBED) 91 MG/DL 70-105 N BASIC METABOLIC [id number] 03:31:00 Test Item Value Reference Range Interpretation Comments SODIUM (test code = 137 mmol/L 135-145 N NA) POTASSIUM (test code 2.7 mmol/L 3.6-5.0 LL Critica l Value = K) reported toFirs t Name:MARCUS Last Name:JUSTUS RESULTS READ BACK AND VERIFIEDby MARYAM NÚÑEZ, on 10/14/20, @ 8203. CHLORIDE (test code = 93 mmol/L 101-111 L CL) CARBON DIOXIDE (test 31 mmol/L 21-31 N code = CO2) GLUCOSE (test code = 101 mg/dl 70-100 H GLU) BLOOD UREA NITROGEN 40 mg/dl 6-20 H (test code = BUN) GLOMERULAR FILTRATION 26 >60 L The es timated RATE (test code = glomerular filtration GFR) rate is compute d usingpatient ra ce, age (>18), sex, and serum creatinine. If anyof the needed data elements are mi ssing the Laboratory cannot compute an inga mation of the glomerul ar filtration rate . CREATININE (test code 2.11 mg/dL 0.44-1.03 H = CREAT) CALCIUM (test code = 7.9 mg/dL 8.5-10.5 L CA) [id number] 03:31:00 Test Item Value Reference Range Interpretation Comments PHOSPHOROUS (test code = PHOS) 3.5 mg/dl 2.5-4.6 N [id number] 03:31:00 Test Item Value Reference Range Interpretation Comments MAGNESIUM (test code = MAG) 1.9 mg/dl 1.8-2.5 N VANCOMYCIN [id number] 03:21:00 Test Item Value Reference Range Interpretation Comments VANCOMYCIN TROUGH 13.8 ug/ml 10.0-20.0 N Please ref er to (test code = VANCT) Medicati on Administration Record (MAR) forlast d ose date and time. CALCIUM [id number] 03:19:00 Test Item Value Reference Range Interpretation Comments CALCIUM IONIZED (test code = DEMOND) 1.16 mmol/L 1.13-1.32 N CBC W/AUTO [id number] 03:09:00 Test Item Value Reference Range Interpretation Comments WHITE BLOOD CELL (test code = 8.5 x10 3/uL 3.2-11.5 N WBC) RED BLOOD CELL (test code = 3.43 x10(6)/m 3.70-5.10 L RBC) HEMOGLOBIN (test code = HGB) 9.5 g/dL 12.0-15.0 L HEMATOCRIT (test code = HCT) 27.7 % 35.7-44.8 L MEAN CELL VOLUME (test code = 81 fL 80-100 N MCV) MEAN CELL HGB (test code = MCH) 27.7 pg 26.2-33.8 N MEAN CELL HGB CONCENTRATION 34.3 g/dL 30.0-34.0 H (test code = MCHC) RED CELL DISTRIBUTION WIDTH 12.0 % 11.3-14.5 N (test code = RDW) PLATELET COUNT (test code = 376 x10 3/uL 130-408 N PLT) MEAN PLATELET VOLUME (test code 8.8 fL 8.6-12.6 N = MPV) NEUTROPHIL % (test code = NT%) 72.9 % 40.0-70.0 H IMMATURE GRANULOCYTE % (test 1.6 % 0.0-2.0 N code = IG%) LYMPHOCYTE % (test code = LY%) 9.6 % 20-40 L MONOCYTE % (test code = MO%) 8.4 % 1-10 N EOSINOPHIL % (test code = EO%) 7.0 % 0.0-5.0 H BASOPHIL % (test code = BA%) 0.5 % 0.0-1.0 N NUCLEATED RBC % (test code = 0.0 % 0.0-0.9 N NRBC%) NEUTROPHIL # (test code = NT#) 6.2 x10 3/uL 1.6-7.2 N LYMPHOCYTE # (test code = LY#) 0.82 x10 3/uL 1.1-2.7 L MONOCYTE # (test code = MO#) 0.7 x10 3/uL 0.3-0.8 N EOSINOPHIL # (test code = EO#) 0.6 x10 3/uL 0.0-0.5 H BASOPHIL # (test code = BA#) 0.0 x10 3/uL 0.0-0.1 N ARTERIAL BLOOD [id number] 02:26:00 Test Item Value Reference Range Interpretation Comments ARTERIAL BLOOD GAS PH 7.421 7.35-7.45 N (test code = PHA) ARTERIAL BLOOD GAS 50.2 mmHg 35-45 H PCO2 (test code = PCO2A) ARTERIAL BLOOD GAS 106.2 mmHg 80-100 H PO2 (test code = PO2A) BICARBONATE TOTAL 31.9 mmol/L 22-26 H HCO3 (test code = HCO3) BASE EXCESS (test 6.5 mmol/L See_Comment H [Automate d message] code = DAV) The system [employer] generated this result transmitted ref erence range: (+/-)2.0 . The reference range was not used to int erpret this result as normal/abnormal . ABG O2 SATURATION 97.5 % 95.0-100.0 N (test code = SATA) ABG TYPE (test code = Arterial TYPEA) ARTERIAL FIO2 (test 40.0 % code = FIO2A) ABG VENT MODE (test PC code = MODEA) ABG VENT RESP RATE 22 /MIN (test code = RRA) ABG PEEP (test code = 12.0 cmH2O PEEP) ABG SITE (test code = Left Radial SITEA) ALLENS TEST (test Yes code = ALLENS) TOTAL HGB (test code 10.6 g/dL 12.0-16.0 L = THB) ARTERIAL BLOOD [id number] 02:26:00 Test Item Value Reference Range Interpretation Comments ARTERIAL BLOOD GAS PH 7.421 7.35-7.45 N (test code = PHA) ARTERIAL BLOOD GAS 50.2 mmHg 35-45 H PCO2 (test code = PCO2A) ARTERIAL BLOOD GAS 106.2 mmHg 80-100 H PO2 (test code = PO2A) BICARBONATE TOTAL 31.9 mmol/L 22-26 H HCO3 (test code = HCO3) BASE EXCESS (test 6.5 mmol/L See_Comment H [Automate d message] code = DAV) The system [employer] generated this result transmitted ref erence range: (+/-)2.0 . The reference range was not used to int erpret this result as normal/abnormal . ABG O2 SATURATION 97.5 % 95.0-100.0 N (test code = SATA) ABG TYPE (test code = Arterial TYPEA) ARTERIAL FIO2 (test 40.0 % code = FIO2A) ABG VENT MODE (test PC code = MODEA) ABG VENT RESP RATE 22 /MIN (test code = RRA) ABG PEEP (test code = 12.0 cmH2O PEEP) ABG SITE (test code = Left Radial SITEA) ALLENS TEST (test Yes code = ALLENS) TOTAL HGB (test code 10.6 g/dL 12.0-16.0 L = THB) [id number] 00:29:00 Test Item Value Reference Range Interpretation Comments GLUBED (test code = GLUBED) 104 MG/DL 70-105 N BASIC METABOLIC [id number] 21:04:00 Test Item Value Reference Range Interpretation Comments SODIUM (test code = 138 mmol/L 135-145 N NA) POTASSIUM (test code 2.6 mmol/L 3.6-5.0 LL Critica l Value = K) reported toFirs t Name:SHANTE salcido Name:BRANDON Yeung READ BACK AND SHANNA SantanaLAB.LAC, on 10/13/20, @ 210 4. CHLORIDE (test code = 96 mmol/L 101-111 L CL) CARBON DIOXIDE (test 30 mmol/L 21-31 N code = CO2) GLUCOSE (test code = 113 mg/dl 70-100 H GLU) BLOOD UREA NITROGEN 42 mg/dl 6-20 H (test code = BUN) GLOMERULAR FILTRATION 23 >60 L The es timated RATE (test code = glomerular filtration GFR) rate is compute d usingpatient ra ce, age (>18), sex, and serum creatinine. If anyof the needed data elements are mi ssing the Laboratory cannot compute an inga mation of the glomerul ar filtration rate . CREATININE (test code 2.33 mg/dL 0.44-1.03 H = CREAT) CALCIUM (test code = 8.3 mg/dL 8.5-10.5 L CA) [id number] 17:09:00 Test Item Value Reference Range Interpretation Comments GLUBED (test code = GLUBED) 121 MG/DL 70-105 H - US RETROPERITONEAL [id number] 15:22:00 [facility] : 1965 Sex: FPatientName: ANETTE ESPITIA Unit No: [id number] EXAMS: CPT: [id number] US RETROPERITONEAL COM [id number] EXAM: - US RETROPERITONEAL COM CLINICAL HISTORY: ANGE TECHNIQUE: Multiple grayscale sonographic images of the kidneys. COMPARISON: None FINDINGS: Right kidney: Length 11.9 cm. Normal echogenicity with cortical thickness 1 cm. No hydronephrosis. Left kidney: Length 11.8 cm. Normal echogenicity with cortical thickness 0.74 cm. No hydronephrosis. Urinary bladder: Poorly visualized, presumably collapse. Visualized liver: Increased echogenicity which may be seen with hepatic steatosis. Visualized right pleura: Partially seen right pleural effusion. IMPRESSION: 1. No hydronephrosis or suspicious renal finding. 2. Pa rtially visualized right pleural effusion. at 1522 Reported and signed by: LIVIER MAIER MD CC: Diana Burrows MD; Gee Maier MD Technologist: Kirsten Santana Probe: Trscr Dt/Tm: 10/13/2020 (1522) by:Zhane Orig Print D/T: S: 10/13/2020 (1526) BATCH NO: N/A Name: ANETTE ESPITIA [facility] Phys: [id number] - Gee Maier MD [address] [facility] : 1965 Age: 55 Sex: F [place], [place] [address] Loc: N.2042 1 Exam Date: 10/13/2020 Status: ADM IN PH: FAX: PAGE 1 Signed ReportURINALYSIS [id number] 13:23:00 Test Item Value Reference Range Interpretation Comments UA COLOR (test code = Straw YELLOW COLU) UA APPEARANCE (test HAZY CLEAR code = APPU) UA GLUCOSE DIPSTICK NEGATIVE NEGATIVE (test code = DGLUU) UA BILIRUBIN DIPSTICK NEGATIVE NEGATIVE (test code = BILU) UA KETONE DIPSTICK NEGATIVE NEGATIVE (test code = KETU) UA SPECIFIC GRAVITY 1.006 1.001-1.030 (test code = SGU) UA BLOOD DIPSTICK (test NEGATIVE NEGATIVE code = RACHEAL) UA PH DIPSTICK (test 5.0 5.0-9.0 code = CHAPARRO) UA PROTEIN DIPSTICK NEGATIVE NEGATIVE (test code = PROU) UA UROBILINOGEN NEGATIVE See_Comment [Automated message] DIPSTICK (test code = The sy stem which URO) generated this result transmitted ref erence range: <=1.0. T he reference range was not used to int erpret this result as normal/abnormal . UA NITRITE DIPSTICK NEGATIVE NEGATIVE (test code = WARREN) UA ASCORBIC ACID NEGATIVE DIPSTICK (test code = AAU) UA LEUKOCYTE ESTERASE NEGATIVE NEGATIVE DIPSTICK (test code = LEUU) UA WBC (test code = 0-5 /HPF 0-5 WBCU) UA RBC (test code = 0-5 /HPF 0-5 RBCU) UA EPITHELIAL CELLS RARE /LPF NONE-FEW (test code = EPIU) UA BACTERIA (test code None /HPF NONE SEEN = BACU) UA HYALINE CAST (test 6-10 /LPF 0-1 A code = HYALU) UA MUCUS (test code = 1+ /LPF NONE SEEN MUCU) [id number] 12:02:00 Test Item Value Reference Range Interpretation Comments GLUBED (test code = GLUBED) 114 MG/DL 70-105 H - XR CHEST 1 [id number] 10:29:00 [facility] : 1965 Sex: FPatientName: ANETTE ESPITIA Unit No: [id number] EXAMS: CPT: [id number] XR CHEST 1 V [id number] History: Respiratory failure Portable AP chest compared to 10/12/2020: No interval change in endotracheal tube, nasogastric tube. Slight interval worsening of pulmonary vascular congestion.. No interval change in the bilateral diffuse pulmonary opacities. IMPRESSION: Worsening vascular congestion. Electronically Signedby Onur Hardy MD on 10/13/2020 at 1029 Reported and signed by: Onur Hardy MD CC: Diana Burrows MD; Ms Roula Mclaughlin MD Technologist: Lucila Pradhan Fluoro Time: DAP (Gy m2):Air Kerma (mGy): Trscr Dt/Tm: 10/13/2020 (1029) by:Elias Orig Print D/T: S: 10/13/2020 (1032) BATCH NO: N/A Name: ANETTE ESPITIA [facility] Phys: [email or web address] - Roula Mclaughlin Ms, MD [address] [facility] : 1965 Age: 55 Sex: F [place], [place] [address] Loc: N.2042 1 Exam Date: 10/13/2020 Status: ADM IN PH: FAX: PAGE 1 Signed [id number] 05:45:00 Test Item Value Reference Range Interpretation Comments GLUBED (test code = GLUBED) 96 MG/DL 70-105 N CALCIUM [id number] 05:37:00 Test Item Value Reference Range Interpretation Comments CALCIUM IONIZED (test code = DEMOND) 1.19 mmol/L 1.13-1.32 N BASIC METABOLIC [id number] 03:52:00 Test Item Value Reference Range Interpretation Comments SODIUM (test code = 135 mmol/L 135-145 N NA) POTASSIUM (test code 3.0 mmol/L 3.6-5.0 L = K) CHLORIDE (test code = 95 mmol/L 101-111 L CL) CARBON DIOXIDE (test 27 mmol/L 21-31 N code = CO2) GLUCOSE (test code = 96 mg/dl 70-100 N GLU) BLOOD UREA NITROGEN 37 mg/dl 6-20 H (test code = BUN) GLOMERULAR FILTRATION 22 >60 L The es timated RATE (test code = glomerular filtration GFR) rate is compute d usingpatient ra ce, age (>18), sex, and serum creatinine. If anyof the needed data elements are mi ssing the Laboratory cannot compute an inga mation of the glomerul ar filtration rate . CREATININE (test code 2.38 mg/dL 0.44-1.03 H = CREAT) CALCIUM (test code = 8.3 mg/dL 8.5-10.5 L CA) [id number] 03:52:00 Test Item Value Reference Range Interpretation Comments PHOSPHOROUS (test code = PHOS) 3.6 mg/dl 2.5-4.6 N [id number] 03:52:00 Test Item Value Reference Range Interpretation Comments MAGNESIUM (test code = MAG) 2.3 mg/dl 1.8-2.5 N CBC W/AUTO [id number] 03:39:00 Test Item Value Reference Range Interpretation Comments WHITE BLOOD CELL (test code = 10.4 x10 3/uL 3.2-11.5 N WBC) RED BLOOD CELL (test code = 3.07 x10(6)/m 3.70-5.10 L RBC) HEMOGLOBIN (test code = HGB) 8.4 g/dL 12.0-15.0 L HEMATOCRIT (test code = HCT) 25.6 % 35.7-44.8 L MEAN CELL VOLUME (test code = 83 fL 80-100 N MCV) MEAN CELL HGB (test code = MCH) 27.4 pg 26.2-33.8 N MEAN CELL HGB CONCENTRATION 32.8 g/dL 30.0-34.0 N (test code = MCHC) RED CELL DISTRIBUTION WIDTH 11.9 % 11.3-14.5 N (test code = RDW) PLATELET COUNT (test code = 280 x10 3/uL 130-408 N PLT) MEAN PLATELET VOLUME (test code 9.0 fL 8.6-12.6 N = MPV) NEUTROPHIL % (test code = NT%) 79.5 % 40.0-70.0 H IMMATURE GRANULOCYTE % (test 0.9 % 0.0-2.0 N code = IG%) LYMPHOCYTE % (test code = LY%) 8.0 % 20-40 L MONOCYTE % (test code = MO%) 5.0 % 1-10 N EOSINOPHIL % (test code = EO%) 6.3 % 0.0-5.0 H BASOPHIL % (test code = BA%) 0.3 % 0.0-1.0 N NUCLEATED RBC % (test code = 0.0 % 0.0-0.9 N NRBC%) NEUTROPHIL # (test code = NT#) 8.3 x10 3/uL 1.6-7.2 H LYMPHOCYTE # (test code = LY#) 0.83 x10 3/uL 1.1-2.7 L MONOCYTE # (test code = MO#) 0.5 x10 3/uL 0.3-0.8 N EOSINOPHIL # (test code = EO#) 0.7 x10 3/uL 0.0-0.5 H BASOPHIL # (test code = BA#) 0.0 x10 3/uL 0.0-0.1 N ARTERIAL BLOOD [id number] 02:39:00 Test Item Value Reference Range Interpretation Comments ARTERIAL BLOOD GAS PH 7.370 7.35-7.45 N (test code = PHA) ARTERIAL BLOOD GAS 48.4 mmHg 35-45 H PCO2 (test code = PCO2A) ARTERIAL BLOOD GAS 78.1 mmHg 80-100 L PO2 (test code = PO2A) BICARBONATE TOTAL 27.4 mmol/L 22-26 H HCO3 (test code = HCO3) BASE EXCESS (test 1.7 mmol/L See_Comment N [Automate d message] code = DAV) The system [employer] generated this result transmitted ref erence range: (+/-)2.0 . The reference range was not used to int erpret this result as normal/abnormal . ABG O2 SATURATION 95.9 % 95.0-100.0 N (test code = SATA) ABG TYPE (test code = Arterial TYPEA) ARTERIAL FIO2 (test 40.0 % code = FIO2A) ABG VENT MODE (test PC code = MODEA) ABG VENT RESP RATE 22 /MIN (test code = RRA) ABG PEEP (test code = 14.0 cmH2O PEEP) ABG SITE (test code = Left Radial SITEA) ALLENS TEST (test Yes code = ALLENS) TOTAL HGB (test code 9.3 g/dL 12.0-16.0 L = THB) ARTERIAL BLOOD [id number] 02:39:00 Test Item Value Reference Range Interpretation Comments ARTERIAL BLOOD GAS PH 7.370 7.35-7.45 N (test code = PHA) ARTERIAL BLOOD GAS 48.4 mmHg 35-45 H PCO2 (test code = PCO2A) ARTERIAL BLOOD GAS 78.1 mmHg 80-100 L PO2 (test code = PO2A) BICARBONATE TOTAL 27.4 mmol/L 22-26 H HCO3 (test code = HCO3) BASE EXCESS (test 1.7 mmol/L See_Comment N [Automate d message] code = DAV) The system [employer] generated this result transmitted ref erence range: (+/-)2.0 . The reference range was not used to int erpret this result as normal/abnormal . ABG O2 SATURATION 95.9 % 95.0-100.0 N (test code = SATA) ABG TYPE (test code = Arterial TYPEA) ARTERIAL FIO2 (test 40.0 % code = FIO2A) ABG VENT MODE (test PC code = MODEA) ABG VENT RESP RATE 22 /MIN (test code = RRA) ABG PEEP (test code = 14.0 cmH2O PEEP) ABG SITE (test code = Left Radial SITEA) ALLENS TEST (test Yes code = ALLENS) TOTAL HGB (test code 9.3 g/dL 12.0-16.0 L = THB) BASIC METABOLIC [id number] 21:44:00 Test Item Value Reference Range Interpretation Comments SODIUM (test code = 134 mmol/L 135-145 L NA) POTASSIUM (test code 3.2 mmol/L 3.6-5.0 L = K) CHLORIDE (test code = 94 mmol/L 101-111 L CL) CARBON DIOXIDE (test 25 mmol/L 21-31 N code = CO2) GLUCOSE (test code = 90 mg/dl 70-100 N GLU) BLOOD UREA NITROGEN 34 mg/dl 6-20 H (test code = BUN) GLOMERULAR FILTRATION 22 >60 L The es timated RATE (test code = glomerular filtration GFR) rate is compute d usingpatient ra ce, age (>18), sex, and serum creatinine. If anyof the needed data elements are mi ssing the Laboratory cannot compute an inga mation of the glomerul ar filtration rate . CREATININE (test code 2.38 mg/dL 0.44-1.03 H = CREAT) CALCIUM (test code = 8.3 mg/dL 8.5-10.5 L CA) Novel Coronavirus 17:20:00 Test Item Value Reference Range Interpretation Comments Novel Coronavirus Negative Negative Positive r esults are 2019 Inhouse (test indicativ e of the presence code = [id number]) ofSARS-CoV -2 RNA, clinical correlation wit h patient historyand othe r diagnostic info rmation is necessary to determinepatien t infection status. Positiv e results do not rule out bacterial infection or co -infection with other viru ses. Negative result s do not preclude SARS-C oV-2 infection andsh ould not be used as the taras e basis for patient managementdecis ions. Negative result s must be combined with otherclinical observations, p atient history, and epidemiological information . Detection of SARS-CoV-2 RNA may be affe cted bysample collec tion methods, storag e conditions, and /or stageof infection. Kiara l RNA mutations, vacc inations, antiviraltherap eutics, antibiotics, chemotherapeuti c orimmunosuppres antonina drugs have not been e valuated for effectson d etection. Results are for the identification of SARS-CoV-2 RNA usingreal-time (RT) polymerase raji n reaction (PCR) technolog yfor the qualitative det ection of nucleic acids f rom [id number] v irus and diagnosis of SA RS-CoV-2 virusinfection. It is an Emergency Use Authorization ( EUA) testauthorized by the [place] FDA.Specimen So urce: Nasopharyngeal ([facility] PHYSICIAN) Swab First test? NoEmployed in Healthcare? NoSymptomatic as defined by CDC? NoDate of Symptom Onset: [id number] due to COVID? NoIn ICU due to COVID? NoResident in a congregate care setting? No? [id number] 11:07:00 Test Item Value Reference Range Interpretation Comments GLUBED (test code = GLUBED) 90 MG/DL 70-105 N CALCIUM [id number] 06:56:00 Test Item Value Reference Range Interpretation Comments CALCIUM IONIZED (test code = DEMOND) 1.15 mmol/L 1.13-1.32 N [id number] 06:47:00 Test Item Value Reference Range Interpretation Comments MAGNESIUM (test code = MAG) 2.3 mg/dl 1.8-2.5 N ADD ON- XR CHEST 1 [id number] 06:39:00 [facility] : 1965 Sex: FPatientName: ANETTE ESPITIA Unit No: [id number] EXAMS: CPT: [id number] XR CHEST 1 V 91417 Portable chest, 10/12/2020. Clinical: Respiratory failure. Comment: The airway and gastric tubes remain in place. There are bilateral diffuse consolidations. No pneumothorax is present. The regional skeleton appears unchanged. IMPRESSION: Interval improvement since 10/11/2020. at 0639 Reported and signed by: Ellis Spivey MD CC: Mark Nieto NP; Diana Burrows MD Technologist: Brain Moncada Time: DAP (Gy m2): Air Kerma (mGy): Trscr Dt/Tm: 10/12/2020 (0639)by:[email or web address] Orig Print D/T: S: 10/12/2020 (0642) BATCH NO: N/A [facility]: [facility] Gu[facility] NP [address] : 1965 Age: 55 Sex: F [place], [place] [address] Loc: N.2042 1 Exam Date: 10/12/2020 Status: ADM IN PH: FAX: PAGE 1 Signed [id number] 05:19:00 Test Item Value Reference Range Interpretation Comments CREATININE (test code = CREAT) 1.69 mg/dL 0.44-1.03 H BASIC METABOLIC [id number] 05:18:00 Test Item Value Reference Range Interpretation Comments SODIUM (test code = 129 mmol/L 135-145 L NA) POTASSIUM (test code 3.1 mmol/L 3.6-5.0 L = K) CHLORIDE (test code = 88 mmol/L 101-111 L CL) CARBON DIOXIDE (test 27 mmol/L 21-31 N code = CO2) GLUCOSE (test code = 96 mg/dl 70-100 N GLU) BLOOD UREA NITROGEN 23 mg/dl 6-20 H (test code = BUN) GLOMERULAR FILTRATION 39 >60 L The es timated RATE (test code = glomerular filtration GFR) rate is compute d usingpatient ra ce, age (>18), sex, and serum creatinine. If anyof the needed data elements are mi ssing the Laboratory cannot compute an inga mation of the glomerul ar filtration rate . CREATININE (test code 1.48 mg/dL 0.44-1.03 H = CREAT) CALCIUM (test code = 8.0 mg/dL 8.5-10.5 L CA) [id number] 05:18:00 Test Item Value Reference Range Interpretation Comments PHOSPHOROUS (test code = PHOS) 3.4 mg/dl 2.5-4.6 N CBC W/AUTO [id number] 04:59:00 Test Item Value Reference Range Interpretation Comments WHITE BLOOD CELL (test code = 11.1 x10 3/uL 3.2-11.5 N WBC) RED BLOOD CELL (test code = 3.12 x10(6)/m 3.70-5.10 L RBC) HEMOGLOBIN (test code = HGB) 8.4 g/dL 12.0-15.0 L HEMATOCRIT (test code = HCT) 26.1 % 35.7-44.8 L MEAN CELL VOLUME (test code = 84 fL 80-100 N MCV) MEAN CELL HGB (test code = MCH) 26.9 pg 26.2-33.8 N MEAN CELL HGB CONCENTRATION 32.2 g/dL 30.0-34.0 N (test code = MCHC) RED CELL DISTRIBUTION WIDTH 12.0 % 11.3-14.5 N (test code = RDW) PLATELET COUNT (test code = 228 x10 3/uL 130-408 N PLT) MEAN PLATELET VOLUME (test code 9.4 fL 8.6-12.6 N = MPV) NEUTROPHIL % (test code = NT%) 85.2 % 40.0-70.0 H IMMATURE GRANULOCYTE % (test 1.0 % 0.0-2.0 N code = IG%) LYMPHOCYTE % (test code = LY%) 6.0 % 20-40 L MONOCYTE % (test code = MO%) 5.1 % 1-10 N EOSINOPHIL % (test code = EO%) 2.6 % 0.0-5.0 N BASOPHIL % (test code = BA%) 0.1 % 0.0-1.0 N NUCLEATED RBC % (test code = 0.0 % 0.0-0.9 N NRBC%) NEUTROPHIL # (test code = NT#) 9.4 x10 3/uL 1.6-7.2 H LYMPHOCYTE # (test code = LY#) 0.66 x10 3/uL 1.1-2.7 L MONOCYTE # (test code = MO#) 0.6 x10 3/uL 0.3-0.8 N EOSINOPHIL # (test code = EO#) 0.3 x10 3/uL 0.0-0.5 N BASOPHIL # (test code = BA#) 0.0 x10 3/uL 0.0-0.1 N ARTERIAL BLOOD [id number] 03:54:00 Test Item Value Reference Range Interpretation Comments ARTERIAL BLOOD GAS PH 7.318 7.35-7.45 L (test code = PHA) ARTERIAL BLOOD GAS 57.0 mmHg 35-45 H PCO2 (test code = PCO2A) ARTERIAL BLOOD GAS 96.8 mmHg 80-100 N PO2 (test code = PO2A) BICARBONATE TOTAL 28.6 mmol/L 22-26 H HCO3 (test code = HCO3) BASE EXCESS (test 1.7 mmol/L See_Comment N [Automate d message] code = DAV) The system [employer] generated this result transmit magali reference range : (+/-)2.0. The reference range was not used to interpret this result as normal/abnormal . ABG O2 SATURATION 97.1 % 95.0-100.0 N (test code = SATA) ABG TYPE (test code = Arterial TYPEA) ARTERIAL FIO2 (test 80.0 % code = FIO2A) ABG VENT MODE (test pc code = MODEA) ABG PEEP (test code = 14.0 cmH2O PEEP) ABG SITE (test code = Right Radial SITEA) ALLENS TEST (test Yes code = ALLENS) TOTAL HGB (test code 9.6 g/dL 12.0-16.0 L = THB) ARTERIAL BLOOD [id number] 03:54:00 Test Item Value Reference Range Interpretation Comments ARTERIAL BLOOD GAS PH 7.318 7.35-7.45 L (test code = PHA) ARTERIAL BLOOD GAS 57.0 mmHg 35-45 H PCO2 (test code = PCO2A) ARTERIAL BLOOD GAS 96.8 mmHg 80-100 N PO2 (test code = PO2A) BICARBONATE TOTAL 28.6 mmol/L 22-26 H HCO3 (test code = HCO3) BASE EXCESS (test 1.7 mmol/L See_Comment N [Automate d message] code = DAV) The system [employer] generated this result transmit magali reference range : (+/-)2.0. The reference range was not used to interpret this result as normal/abnormal . ABG O2 SATURATION 97.1 % 95.0-100.0 N (test code = SATA) ABG TYPE (test code = Arterial TYPEA) ARTERIAL FIO2 (test 80.0 % code = FIO2A) ABG VENT MODE (test pc code = MODEA) ABG PEEP (test code = 14.0 cmH2O PEEP) ABG SITE (test code = Right Radial SITEA) ALLENS TEST (test Yes code = ALLENS) TOTAL HGB (test code 9.6 g/dL 12.0-16.0 L = THB) ARTERIAL BLOOD [id number] 01:41:00 Test Item Value Reference Range Interpretation Comments ARTERIAL BLOOD GAS PH 7.314 7.35-7.45 L (test code = PHA) ARTERIAL BLOOD GAS 56.9 mmHg 35-45 H PCO2 (test code = PCO2A) ARTERIAL BLOOD GAS 84.8 mmHg 80-100 N PO2 (test code = PO2A) BICARBONATE TOTAL 28.3 mmol/L 22-26 H HCO3 (test code = HCO3) BASE EXCESS (test 1.0 mmol/L See_Comment N [Automate d message] code = DAV) The system [employer] generated this result transmit magali reference range : (+/-)2.0. The reference range was not used to interpret this result as normal/abnormal . ABG O2 SATURATION 96.4 % 95.0-100.0 N (test code = SATA) ABG TYPE (test code = Arterial TYPEA) ARTERIAL FIO2 (test 80.0 % code = FIO2A) ABG VENT MODE (test PRVC code = MODEA) ABG SITE (test code = Right Radial SITEA) ALLENS TEST (test Yes code = ALLENS) TOTAL HGB (test code 12.6 g/dL 12.0-16.0 N = THB) ARTERIAL BLOOD [id number] 01:41:00 Test Item Value Reference Range Interpretation Comments ARTERIAL BLOOD GAS PH 7.314 7.35-7.45 L (test code = PHA) ARTERIAL BLOOD GAS 56.9 mmHg 35-45 H PCO2 (test code = PCO2A) ARTERIAL BLOOD GAS 84.8 mmHg 80-100 N PO2 (test code = PO2A) BICARBONATE TOTAL 28.3 mmol/L 22-26 H HCO3 (test code = HCO3) BASE EXCESS (test 1.0 mmol/L See_Comment N [Automate d message] code = DAV) The system [employer] generated this result transmit magali reference range : (+/-)2.0. The reference range was not used to interpret this result as normal/abnormal . ABG O2 SATURATION 96.4 % 95.0-100.0 N (test code = SATA) ABG TYPE (test code = Arterial TYPEA) ARTERIAL FIO2 (test 80.0 % code = FIO2A) ABG VENT MODE (test PRVC code = MODEA) ABG SITE (test code = Right Radial SITEA) ALLENS TEST (test Yes code = ALLENS) TOTAL HGB (test code 12.6 g/dL 12.0-16.0 N = THB) [id number] 23:27:00 Test Item Value Reference Range Interpretation Comments GLUBED (test code = GLUBED) 98 MG/DL 70-105 N B-TYPE NATRIURETIC [id number] Test Item Value Reference Range Interpretation Comments B-TYPE NATRIURETIC PEPTIDE (test 632 pg/ml 0-100 H code = BNP) COVID 19 INHOUSE [id number] 16:44:00 Test Item Value Reference Range Interpretation Comments COVID 19 INHOUSE AG NEGATIVE Negative Negative results should be (test code = treated as pres umptive [id number]) andconfirmed wi th a molecular assay , if necessary for patientmanageme nt. Negative result s do not rule out COVID- 19 andshould not b e used as the sole basis for treatment orpat ient management deci sions, including infec tion controldecision s. Negative results should be considered in t hecontext of a patient's recent exposures, hist ory and thepresence of clnical signs and sympt oms consistent withCOVID-19.Sp ecimen Source: Nasopha ryngeal (HOME HEALTH CARE PHYSICIAN) Swab - XR CHEST 1 [id number] 08:56:00 [facility] : 1965 Sex: FPatientName: ANETTE ESPITIA Unit No: [id number] EXAMS: CPT: [id number] XR CHEST 1 V 65202 CHEST RADIOGRAPH, ONE VIEW: FRONTAL HISTORY: Shortness of breath. COMPARISON: October 11, 2020. FINDINGS: Tip of the ET tube is 3 cm above the van. NG tube is below hemidiaphragm. Interval worsening of airspace and groundglass opacities in both lungs. The cardiac silhouette is normal. IMPRESSION: Interval worsening. at 0856 Reported and signed by: Shayne Talbot MD CC: Chaparro Treadwell DO; Vin Horner MD Technologist: Lucila Pradhan Fluoro Time: DAP (Gy m2): Air Kerma (mGy): Trscr Dt/Tm: 10/11/2020 (0856) by:[email or web address] Orig Print D/T: S: 10/11/2020 (0859) BATCH NO: N/A Name: ANETTE ESPITIA [facility] Phys: Vin Siddiqi MD [address] : 1965 Age:55 Sex: F [place], [place] [address] Loc: N.2042 1 Exam Date: 10/11/2020 Status: ADM IN PH: FAX: PAGE 1 Signed Report- XR CHEST 1 [id number] 07:16:00 [facility] : 1965 Sex: FPatientName: ANETTE ESPITIA Unit No: [id number] EXAMS: CPT: [id number] XR CHEST 1 V 13952 STUDY: - XR CHEST 1V INDICATION: For shortness of breath and/or Chest Pain. TECHNIQUE: AP view of the chest. COMPARISON: Chest radiograph from . FINDINGS: No mediastinal shift. Normal cardiac silhouette. Diffuse bilateral lung mixed interstitial and airspace opacities with relative sparing of the lung apices, overall about the same compared to 10/10/2020 but worse compared to 10/08/2020 likely to represent severe edema perhaps mixed with pneumonia. No evidence of pleural effusion or pneumothorax. IMPRESSION: No change compared to 10/10/2020 but mildly worsened compared to 10/08/2020. at 0716 Reported and signed by: LIVIER MAIER MD CC: Chaparro Treadwell DO Technologist: Brain Moncada Time: DAP (Gy m2): Air Kerma (mGy): Trscr Dt/Tm: 10/11/2020 (0716) by:Zhane Orig Print D/T: S: 10/11/2020 (0719) BATCH NO: N/A Name: ANETTE ESPITIA [facility] Phys: CAOPH -Treadwell,Chaparro DO [address] : 1965 Age: 55 Sex: F [place] [address] Loc: N.0656 1 Exam Date: 10/11/2020 Status: ADM IN PH: FAX: PAGE 1 Signed ReportARTERIAL BLOOD [id number] 07:06:00 Test Item Value Reference Range Interpretation Comments ARTERIAL BLOOD GAS PH 7.408 7.35-7.45 N (test code = PHA) ARTERIAL BLOOD GAS 47.2 mmHg 35-45 H PCO2 (test code = PCO2A) ARTERIAL BLOOD GAS 55.7 mmHg 80-100 L PO2 (test code = PO2A) BICARBONATE TOTAL 29.1 mmol/L 22-26 H HCO3 (test code = HCO3) BASE EXCESS (test 3.8 mmol/L See_Comment H [Automate d message] code = DAV) The system [employer] generated this result transmitted ref erence range: (+/-)2.0 . The reference range was not used to int erpret this result as normal/abnormal . ABG O2 SATURATION 91.4 % 95.0-100.0 L (test code = SATA) ABG TYPE (test code = Arterial TYPEA) ARTERIAL FIO2 (test 100.0 % code = FIO2A) ABG VENT MODE (test BIPAP code = MODEA) ABG SITE (test code = Left Radial SITEA) ALLENS TEST (test Yes code = ALLENS) TOTAL HGB (test code 11.8 g/dL 12.0-16.0 L = THB) ARTERIAL BLOOD [id number] 07:06:00 Test Item Value Reference Range Interpretation Comments ARTERIAL BLOOD GAS PH 7.408 7.35-7.45 N (test code = PHA) ARTERIAL BLOOD GAS 47.2 mmHg 35-45 H PCO2 (test code = PCO2A) ARTERIAL BLOOD GAS 55.7 mmHg 80-100 L PO2 (test code = PO2A) BICARBONATE TOTAL 29.1 mmol/L 22-26 H HCO3 (test code = HCO3) BASE EXCESS (test 3.8 mmol/L See_Comment H [Automate d message] code = DAV) The system [employer] generated this result transmitted ref erence range: (+/-)2.0 . The reference range was not used to int erpret this result as normal/abnormal . ABG O2 SATURATION 91.4 % 95.0-100.0 L (test code = SATA) ABG TYPE (test code = Arterial TYPEA) ARTERIAL FIO2 (test 100.0 % code = FIO2A) ABG VENT MODE (test BIPAP code = MODEA) ABG SITE (test code = Left Radial SITEA) ALLENS TEST (test Yes code = ALLENS) TOTAL HGB (test code 11.8 g/dL 12.0-16.0 L = THB) CBC W/AUTO [id number] 06:51:00 Test Item Value Reference Range Interpretation Comments WHITE BLOOD CELL (test code = 17.0 x10 3/uL 3.2-11.5 H WBC) RED BLOOD CELL (test code = 3.96 x10(6)/m 3.70-5.10 N RBC) HEMOGLOBIN (test code = HGB) 10.9 g/dL 12.0-15.0 L HEMATOCRIT (test code = HCT) 32.9 % 35.7-44.8 L MEAN CELL VOLUME (test code = 83 fL 80-100 N MCV) MEAN CELL HGB (test code = MCH) 27.5 pg 26.2-33.8 N MEAN CELL HGB CONCENTRATION 33.1 g/dL 30.0-34.0 N (test code = MCHC) RED CELL DISTRIBUTION WIDTH 11.9 % 11.3-14.5 N (test code = RDW) PLATELET COUNT (test code = 259 x10 3/uL 130-408 N PLT) MEAN PLATELET VOLUME (test code 9.5 fL 8.6-12.6 N = MPV) WBC [id number] 06:51:00 Test Item Value Reference Range Interpretation Comments TOTAL CELLS COUNTED (test code 100 #CELLS = TCC) SEGMENTED NEUTROPHILS (test 91 % 43-65 H code = SEG) BAND NEUTROPHIL (test code = 3 % 0-1 H BAND) LYMPHOCYTE (test code = LYMPH) 3 % 20.5-45.5 L MONOCYTE (test code = MON) 2 % 5.5-11.7 L MYELOCYTE (test code = MYELO) 1 % 0-0 H BAND ABSOLUTE (test code = 0.51 10 3/uL 0.00-0.70 N BAND#) NEUTROPHIL ABSOLUTE (test code 15.47 10 3/uL 1.6-7.2 H = SEG#) LYMPH ABSOLUTE (test code = 0.5 10 3/uL 1.1-4.8 L LYMPH#) ATYPICAL LYMPH ABSOLUTE (test 0.00 10 3/uL 0.00-0.00 N code = ALYMPH#) MONOCYTE ABSOLUTE (test code = 0.34 10 3/uL 0.3-0.8 N MON#) BASOPHIL ABSOLUTE (test code = 0.00 10 3/uL 0.00-0.1 N BASO#) EOSINOPHIL ABSOLUTE (test code 0.00 10 3/uL 0.00-0.50 N = EOS#) METAMYELOCYTE ABSOLUTE (test 0.00 10 3/uL 0.00-0.00 N code = META#) MYELOCYTE ABSOLUTE (test code = 0.17 10 3/uL 0.00-0.00 H MYELO#) PROMYELOCYTE ABSOLUTE (test 0.00 10 3/uL 0.00-0.00 N code = PROM#) BLASTS ABSOLUTE (test code = 0.00 10 3/uL 0.00-0.00 N BLAST#) OTHER CELLS ABSOLUTE (test code 0.00 10 3/uL 0.00-0.00 N = OCT#) POLYCHROMASIA (test code = 1+ NONE SEEN A POLC) RBC MORPHOLOGY COMMENT (test See comment NORMAL code = MOC) PLATELET MORPHOLOGY (test code Normal NORMAL = PLTMORPH) [id number] 06:41:00 Test Item Value Reference Range Interpretation Comments PHOSPHOROUS (test code = PHOS) 2.7 mg/dl 2.5-4.6 N CALCIUM [id number] 06:28:00 Test Item Value Reference Range Interpretation Comments CALCIUM IONIZED (test code = DEMOND) 1.15 mmol/L 1.13-1.32 N CBC W/AUTO [id number] 06:14:00 Test Item Value Reference Range Interpretation Comments WHITE BLOOD CELL (test code = 17.0 x10 3/uL 3.2-11.5 H WBC) RED BLOOD CELL (test code = 3.96 x10(6)/m 3.70-5.10 N RBC) HEMOGLOBIN (test code = HGB) 10.9 g/dL 12.0-15.0 L HEMATOCRIT (test code = HCT) 32.9 % 35.7-44.8 L MEAN CELL VOLUME (test code = 83 fL 80-100 N MCV) MEAN CELL HGB (test code = MCH) 27.5 pg 26.2-33.8 N MEAN CELL HGB CONCENTRATION 33.1 g/dL 30.0-34.0 N (test code = MCHC) RED CELL DISTRIBUTION WIDTH 11.9 % 11.3-14.5 N (test code = RDW) PLATELET COUNT (test code = 259 x10 3/uL 130-408 N PLT) MEAN PLATELET VOLUME (test code 9.5 fL 8.6-12.6 N = MPV) WBC [id number] 06:14:00 Test Item Value Reference Range Interpretation Comments TOTAL CELLS COUNTED (test code = TCC) #CELLS RBC MORPHOLOGY COMMENT (test code = NORMAL MOC) PLATELET MORPHOLOGY (test code = NORMAL PLTMORPH) CBC W/AUTO [id number] 06:14:00 Test Item Value Reference Range Interpretation Comments WHITE BLOOD CELL (test code = 17.0 x10 3/uL 3.2-11.5 H WBC) RED BLOOD CELL (test code = 3.96 x10(6)/m 3.70-5.10 N RBC) HEMOGLOBIN (test code = HGB) 10.9 g/dL 12.0-15.0 L HEMATOCRIT (test code = HCT) 32.9 % 35.7-44.8 L MEAN CELL VOLUME (test code = 83 fL 80-100 N MCV) MEAN CELL HGB (test code = MCH) 27.5 pg 26.2-33.8 N MEAN CELL HGB CONCENTRATION 33.1 g/dL 30.0-34.0 N (test code = MCHC) RED CELL DISTRIBUTION WIDTH 11.9 % 11.3-14.5 N (test code = RDW) PLATELET COUNT (test code = 259 x10 3/uL 130-408 N PLT) MEAN PLATELET VOLUME (test code 9.5 fL 8.6-12.6 N = MPV) WBC [id number] 06:14:00 Test Item Value Reference Range Interpretation Comments TOTAL CELLS COUNTED (test code = TCC) #CELLS RBC MORPHOLOGY COMMENT (test code = NORMAL MOC) PLATELET MORPHOLOGY (test code = NORMAL PLTMORPH) [id number] 06:04:00 Test Item Value Reference Range Interpretation Comments CREATININE (test code = CREAT) 0.96 mg/dL 0.44-1.03 N [id number] 05:54:00 Test Item Value Reference Range Interpretation Comments GLUBED (test code = GLUBED) 117 MG/DL 70-105 H [id number] 20:58:00 Test Item Value Reference Range Interpretation Comments GLUBED (test code = GLUBED) 133 MG/DL 70-105 H [id number] 16:30:00 Test Item Value Reference Range Interpretation Comments GLUBED (test code = GLUBED) 124 MG/DL 70-105 H - XR CHEST 1 [id number] 13:15:00 [facility] : 1965 Sex: FPatientName: ANETTE ESPITIA Unit No: [id number] EXAMS: CPT: [id number] XR CHEST 1 V 60642 EXAM: SINGLE AP VIEWOF THE CHEST HISTORY: Shortness of breath. COMPARISON: Chest x-ray 10/08/2020. FINDINGS: Lines/tubes: Partially evaluated neurostimulator projects over the mediastinum. Lungs/Pleura: Diffuse bilateral airspace opacities with prominence of the pulmonary vasculature. Small residual right-sided pleural effu milagro. The left costophrenic angle is clear. No pneumothorax. Heart/mediastinum: Cardiomediastinal silhouette is within normal limits. Bones/soft tissues: Within normal limits. IMPRESSION: Persistent moderate pulmonary vascular congestion. Small residual right-sided pleural effusion. at 1315 Reported and signed by: ODESSA BRUNSON MD CC: Chaparro Lay; Jemima Block Technologist: Page Moncada Time: DAP (Gy m2): Air Kerma (mGy): Trscr Dt/Tm: 10/10/2020 (1315) by:[email or web address] Orig Print D/T: S: 10/10/2020 (6813) BATCH NO: N/A Name: ANETTE ESPITIA [facility] Phys: Jemima Jones [address] [facility] : 1965 Age: 55 Sex: F [place] [address] Loc: N.0656 1 Exam Date: 10/10/2020 Status: ADM IN PH: FAX: PAGE 1 Signed [id number] 11:46:00 Test Item Value Reference Range Interpretation Comments GLUBED (test code = GLUBED) 108 MG/DL 70-105 H CALCIUM [id number] 06:40:00 Test Item Value Reference Range Interpretation Comments CALCIUM IONIZED (test code = DEMOND) 1.15 mmol/L 1.13-1.32 N [id number] 06:12:00 Test Item Value Reference Range Interpretation Comments GLUBED (test code = GLUBED) 103 MG/DL 70-105 N COMPREHENSIVE METABOLIC [id number] 06:09:00 Test Item Value Reference Range Interpretation Comments SODIUM (test code = 132 mmol/L 135-145 L NA) POTASSIUM (test 3.6 mmol/L 3.6-5.0 N code = K) CHLORIDE (test code 95 mmol/L 101-111 L = CL) CARBON DIOXIDE 25 mmol/L 21-31 N (test code = CO2) GLUCOSE (test code 116 mg/dl 70-100 H = GLU) BLOOD UREA NITROGEN 14 mg/dl 6-20 N (test code = BUN) GLOMERULAR >=60 max >60 The estimated FILTRATION RATE estimate glomerular (test code = GFR) filtration rate is computed usingpatient ra ce, age (>18), sex, and serum creatinin e. If anyof the ne eded data elements a re missing the Laboratory el ot compute an estimation of t he glomerular filtration rate . CREATININE (test 0.76 mg/dL 0.44-1.03 N code = CREAT) TOTAL PROTEIN (test 5.7 g/dL 6.7-8.2 L code = PROT) ALBUMIN (test code 2.9 g/dL 3.2-5.5 L = ALB) CALCIUM (test code 8.2 mg/dL 8.5-10.5 L = CA) BILIRUBIN TOTAL 1.00 mg/dL 0.2-1.3 N (test code = BILT) SGOT/AST (test code 27 U/L 10-42 N = AST) SGPT/ALT (test code 45 U/L 10-60 N = ALT) ALKALINE 68 U/L 42-121 N PHOSPHATASE (test code = ALKP) [id number] 06:09:00 Test Item Value Reference Range Interpretation Comments PHOSPHOROUS (test code = PHOS) 3.1 mg/dl 2.5-4.6 N CBC W/AUTO [id number] 06:07:00 Test Item Value Reference Range Interpretation Comments WHITE BLOOD CELL (test code = 16.4 x10 3/uL 3.2-11.5 H WBC) RED BLOOD CELL (test code = 3.79 x10(6)/m 3.70-5.10 N RBC) HEMOGLOBIN (test code = HGB) 10.4 g/dL 12.0-15.0 L HEMATOCRIT (test code = HCT) 31.2 % 35.7-44.8 L MEAN CELL VOLUME (test code = 82 fL 80-100 N MCV) MEAN CELL HGB (test code = MCH) 27.4 pg 26.2-33.8 N MEAN CELL HGB CONCENTRATION 33.3 g/dL 30.0-34.0 N (test code = MCHC) RED CELL DISTRIBUTION WIDTH 11.9 % 11.3-14.5 N (test code = RDW) PLATELET COUNT (test code = 219 x10 3/uL 130-408 N PLT) MEAN PLATELET VOLUME (test code 9.2 fL 8.6-12.6 N = MPV) NEUTROPHIL % (test code = NT%) 87.1 % 40.0-70.0 H IMMATURE GRANULOCYTE % (test 1.1 % 0.0-2.0 N code = IG%) LYMPHOCYTE % (test code = LY%) 6.4 % 20-40 L MONOCYTE % (test code = MO%) 5.1 % 1-10 N EOSINOPHIL % (test code = EO%) 0.1 % 0.0-5.0 N BASOPHIL % (test code = BA%) 0.2 % 0.0-1.0 N NUCLEATED RBC % (test code = 0.0 % 0.0-0.9 N NRBC%) NEUTROPHIL # (test code = NT#) 14.2 x10 3/uL 1.6-7.2 H LYMPHOCYTE # (test code = LY#) 1.05 x10 3/uL 1.1-2.7 L MONOCYTE # (test code = MO#) 0.8 x10 3/uL 0.3-0.8 N EOSINOPHIL # (test code = EO#) 0.0 x10 3/uL 0.0-0.5 N BASOPHIL # (test code = BA#) 0.0 x10 3/uL 0.0-0.1 N COMPREHENSIVE METABOLIC [id number] 06:06:00 Test Item Value Reference Range Interpretation Comments SODIUM (test code = 132 mmol/L 135-145 L NA) POTASSIUM (test 3.6 mmol/L 3.6-5.0 N code = K) CHLORIDE (test code 95 mmol/L 101-111 L = CL) CARBON DIOXIDE 25 mmol/L 21-31 N (test code = CO2) GLUCOSE (test code 116 mg/dl 70-100 H = GLU) BLOOD UREA NITROGEN 14 mg/dl 6-20 N (test code = BUN) GLOMERULAR >=60 max >60 The estimated FILTRATION RATE estimate glomerular (test code = GFR) filtration rate is computed usingpatient ra ce, age (>18), sex, and serum creatinin e. If anyof the ne eded data elements a re missing the Laboratory el ot compute an estimation of t he glomerular filtration rate . CREATININE (test 0.76 mg/dL 0.44-1.03 N code = CREAT) TOTAL PROTEIN (test g/dL 6.7-8.2 code = PROT) ALBUMIN (test code g/dL 3.2-5.5 = ALB) CALCIUM (test code 8.2 mg/dL 8.5-10.5 L = CA) BILIRUBIN TOTAL mg/dL 0.2-1.3 (test code = BILT) SGOT/AST (test code U/L 10-42 = AST) SGPT/ALT (test code U/L 10-60 = ALT) ALKALINE U/L 42-121 PHOSPHATASE (test code = ALKP) [id number] 06:06:00 Test Item Value Reference Range Interpretation Comments PHOSPHOROUS (test code = PHOS) mg/dl 2.5-4.6 [id number] 21:20:00 Test Item Value Reference Range Interpretation Comments GLUBED (test code = GLUBED) 114 MG/DL 70-105 H [id number] 16:08:00 Test Item Value Reference Range Interpretation Comments GLUBED (test code = GLUBED) 131 MG/DL 70-105 H [id number] 13:10:00 Test Item Value Reference Range Interpretation Comments GLUBED (test code = GLUBED) 117 MG/DL 70-105 H CBC W/AUTO [id number] 06:14:00 Test Item Value Reference Range Interpretation Comments WHITE BLOOD CELL (test code = 17.3 x10 3/uL 3.2-11.5 H WBC) RED BLOOD CELL (test code = 4.00 x10(6)/m 3.70-5.10 N RBC) HEMOGLOBIN (test code = HGB) 11.1 g/dL 12.0-15.0 L HEMATOCRIT (test code = HCT) 32.8 % 35.7-44.8 L MEAN CELL VOLUME (test code = 82 fL 80-100 N MCV) MEAN CELL HGB (test code = MCH) 27.8 pg 26.2-33.8 N MEAN CELL HGB CONCENTRATION 33.8 g/dL 30.0-34.0 N (test code = MCHC) RED CELL DISTRIBUTION WIDTH 12.3 % 11.3-14.5 N (test code = RDW) PLATELET COUNT (test code = 180 x10 3/uL 130-408 N PLT) MEAN PLATELET VOLUME (test code 10.7 fL 8.6-12.6 N = MPV) NEUTROPHIL % (test code = NT%) 80.4 % 40.0-70.0 H IMMATURE GRANULOCYTE % (test 1.0 % 0.0-2.0 N code = IG%) LYMPHOCYTE % (test code = LY%) 10.2 % 20-40 L MONOCYTE % (test code = MO%) 8.1 % 1-10 N EOSINOPHIL % (test code = EO%) 0.0 % 0.0-5.0 N BASOPHIL % (test code = BA%) 0.3 % 0.0-1.0 N NUCLEATED RBC % (test code = 0.0 % 0.0-0.9 N NRBC%) NEUTROPHIL # (test code = NT#) 13.9 x10 3/uL 1.6-7.2 H LYMPHOCYTE # (test code = LY#) 1.76 x10 3/uL 1.1-2.7 N MONOCYTE # (test code = MO#) 1.4 x10 3/uL 0.3-0.8 H EOSINOPHIL # (test code = EO#) 0.0 x10 3/uL 0.0-0.5 N BASOPHIL # (test code = BA#) 0.1 x10 3/uL 0.0-0.1 N COMPREHENSIVE METABOLIC [id number] 05:56:00 Test Item Value Reference Range Interpretation Comments SODIUM (test code = 134 mmol/L 135-145 L NA) POTASSIUM (test 3.2 mmol/L 3.6-5.0 L code = K) CHLORIDE (test code 100 mmol/L 101-111 L = CL) CARBON DIOXIDE 22 mmol/L 21-31 N (test code = CO2) GLUCOSE (test code 108 mg/dl 70-100 H = GLU) BLOOD UREA NITROGEN 21 mg/dl 6-20 H (test code = BUN) GLOMERULAR >=60 max >60 The estimated FILTRATION RATE estimate glomerular (test code = GFR) filtration rate is computed usingpatient ra ce, age (>18), sex, and serum creatinin e. If anyof the ne eded data elements a re missing the Laboratory el ot compute an estimation of t he glomerular filtration rate . CREATININE (test 0.83 mg/dL 0.44-1.03 N code = CREAT) TOTAL PROTEIN (test 5.3 g/dL 6.7-8.2 L code = PROT) ALBUMIN (test code 3.0 g/dL 3.2-5.5 L = ALB) CALCIUM (test code 8.0 mg/dL 8.5-10.5 L = CA) BILIRUBIN TOTAL 0.90 mg/dL 0.2-1.3 N (test code = BILT) SGOT/AST (test code 36 U/L 10-42 N = AST) SGPT/ALT (test code 57 U/L 10-60 N = ALT) ALKALINE 66 U/L 42-121 N PHOSPHATASE (test code = ALKP) CREATINE KINASE (CK)2020-10-09 05:56:00 Test Item Value Reference Range Interpretation Comments CREATINE KINASE (CK) (test 431 U/L 0-210 HH P REVIOUSLY CALLED. code = CK) [id number] 05:36:00 Test Item Value Reference Range Interpretation Comments GLUBED (test code = GLUBED) 117 MG/DL 70-105 H LIVER FUNCTION [id number] 13:35:00 Test Item Value Reference Range Interpretation Comments TOTAL PROTEIN (test code = PROT) 5.7 g/dL 6.7-8.2 L ALBUMIN (test code = ALB) 3.3 g/dL 3.2-5.5 N BILIRUBIN TOTAL (test code = BILT) 0.50 mg/dL 0.2-1.3 N BILIRUBIN DIRECT (test code = 0.1 mg/dL 0.00-0.20 N BILD) SGOT/AST (test code = AST) 43 U/L 10-42 H SGPT/ALT (test code = ALT) 72 U/L 10-60 H ALKALINE PHOSPHATASE (test code = 75 U/L 42-121 N ALKP) LACTIC [id number] 13:34:00 Test Item Value Reference Range Interpretation Comments LACTIC ACID (test code = LACT) 1.9 mmol/L 0.5-2.0 N - XR CHEST 1 [id number] 12:59:00 [facility] : 1965 Sex: FPatientName: ANETTE ESPITIA Unit No: [id number] EXAMS: CPT: [id number] XR CHEST 1 V 26953 CHEST RADIOGRAPH, ONE VIEW: FRONTAL HISTORY: Shortness of breath. COMPARISON: October 07. FINDINGS: Interval developmentof extensive vascular congestion and interstitial edema and small right pleural effusion. The cardiac silhouette is magnified. IMPRESSION: Extensive vascular congestion and inserted a mass. Small rightpleural effusion. at 1259 Reported and signed by: Shayne Talbot MD CC: Chioma Doe MD Technologist: Lucila Moncada Time: DAP (Gy m2): Air Kerma (mGy): Trscr Dt/Tm: 10/08/2020 (8059) by:[email or web address] Orig Print D/T: S: 10/08/2020 (1302) BATCH NO: N/A Name: ANETTE ESPITIA [facility] Phys: Chioma Alonzo MD [address] [facility] : 1965 Age: 55 Sex: [place] [address] Loc: N.ERMI 2 Exam Date: 10/08/2020 Status: ADM IN PH: FAX: PAGE 1 Signed ReportCOMPREHENSIVE METABOLIC [id number] 07:47:00 Test Item Value Reference Range Interpretation Comments SODIUM (test code = 130 mmol/L 135-145 L NA) POTASSIUM (test code 3.6 mmol/L 3.6-5.0 N = K) CHLORIDE (test code = 100 mmol/L 101-111 L CL) CARBON DIOXIDE (test 20 mmol/L 21-31 L code = CO2) GLUCOSE (test code = 139 mg/dl 70-100 H GLU) BLOOD UREA NITROGEN 25 mg/dl 6-20 H (test code = BUN) GLOMERULAR FILTRATION 58 >60 L The es timated RATE (test code = glomerular filtration GFR) rate is compute d usingpatient ra ce, age (>18), sex, and serum creatinine. If anyof the needed data elements are mi ssing the Laboratory cannot compute an inga mation of the glomerul ar filtration rate . CREATININE (test code 1.04 mg/dL 0.44-1.03 H = CREAT) TOTAL PROTEIN (test 5.6 g/dL 6.7-8.2 L code = PROT) ALBUMIN (test code = 3.2 g/dL 3.2-5.5 N ALB) CALCIUM (test code = 8.4 mg/dL 8.5-10.5 L CA) BILIRUBIN TOTAL (test 0.60 mg/dL 0.2-1.3 N code = BILT) SGOT/AST (test code = 46 U/L 10-42 H AST) SGPT/ALT (test code = 76 U/L 10-60 H ALT) ALKALINE PHOSPHATASE 73 U/L 42-121 N (test code = ALKP) Spec Comments: Repeat Serum Magnesium level in AM if not alreadyComments to Phleb: ordered.Comments to Phleb: Repeat Serum K level in AM if not already ordered.[id number] 07:47:00 Test Item Value Reference Range Interpretation Comments PHOSPHOROUS (test code = PHOS) 3.6 mg/dl 2.5-4.6 N Spec Comments: Repeat Serum Magnesium level in AM if not alreadyComments to Phleb: ordered.Comments to Phleb: Repeat Serum K level in AM if not already ordered.CREATINE KINASE (CK)2020-10-08 07:47:00 Test Item Value Reference Range Interpretation Comments CREATINE KINASE (CK) 396 U/L 0-210 HH Critica l Value reported (test code = CK) Daniel Posada e:CEIIGA Last Name:STEFANI RESULTS READ BACK AND V Yeimi SantanaLAB.PD, on , @ 0705. Spec Comments: Repeat Serum Magnesium level in AM if not alreadyComments to Phleb: ordered.Comments to Phleb: Repeat Serum K level in AM if not already ordered.[id number] 07:47:00 Test Item Value Reference Range Interpretation Comments MAGNESIUM (test code = MAG) 2.1 mg/dl 1.8-2.5 N Spec Comments: Repeat Serum Magnesium level in AM if not alreadyComments to Phleb: ordered.Comments to Phleb: Repeat Serum K level in AM if not already ordered.CALCIUM [id number] 07:34:00 Test Item Value Reference Range Interpretation Comments CALCIUM IONIZED (test code = DEMOND) 1.18 mmol/L 1.13-1.32 N CBC W/AUTO [id number] 07:26:00 Test Item Value Reference Range Interpretation Comments WHITE BLOOD CELL (test code = 21.1 x10 3/uL 3.2-11.5 H WBC) RED BLOOD CELL (test code = 4.57 x10(6)/m 3.70-5.10 N RBC) HEMOGLOBIN (test code = HGB) 12.7 g/dL 12.0-15.0 HEMATOCRIT (test code = HCT) 39.6 % 35.7-44.8 N MEAN CELL VOLUME (test code = 87 fL 80-100 N MCV) MEAN CELL HGB (test code = MCH) 27.8 pg 26.2-33.8 N MEAN CELL HGB CONCENTRATION 32.1 g/dL 30.0-34.0 N (test code = MCHC) RED CELL DISTRIBUTION WIDTH 12.8 % 11.3-14.5 N (test code = RDW) PLATELET COUNT (test code = 302 x10 3/uL 130-408 N PLT) MEAN PLATELET VOLUME (test code 8.9 fL 8.6-12.6 N = MPV) NEUTROPHIL % (test code = NT%) 84.8 % 40.0-70.0 H IMMATURE GRANULOCYTE % (test 0.8 % 0.0-2.0 N code = IG%) LYMPHOCYTE % (test code = LY%) 8.3 % 20-40 L MONOCYTE % (test code = MO%) 5.8 % 1-10 N EOSINOPHIL % (test code = EO%) 0.0 % 0.0-5.0 N BASOPHIL % (test code = BA%) 0.3 % 0.0-1.0 N NUCLEATED RBC % (test code = 0.0 % 0.0-0.9 N NRBC%) NEUTROPHIL # (test code = NT#) 17.9 x10 3/uL 1.6-7.2 H LYMPHOCYTE # (test code = LY#) 1.76 x10 3/uL 1.1-2.7 N MONOCYTE # (test code = MO#) 1.2 x10 3/uL 0.3-0.8 H EOSINOPHIL # (test code = EO#) 0.0 x10 3/uL 0.0-0.5 N BASOPHIL # (test code = BA#) 0.1 x10 3/uL 0.0-0.1 N [id number] 02:24:00 Test Item Value Reference Range Interpretation Comments TROPONIN-I (test code = TROPI) 0.033 ng/mL 0.000-0.034 N LACTIC [id number] 02:19:00 Test Item Value Reference Range Interpretation Comments LACTIC ACID (test 2.7 mmol/L 0.5-2.0 HH Critical V alue reported code = LACT) toFirst Name:ROBERTO SAMINA Last Name:BEVERLEY CROFT READ BACK AND SHANNA SantanaLAB.MOM, on 0 10/08/20, @ 9534. BASIC METABOLIC [id number] 02:14:00 Test Item Value Reference Range Interpretation Comments SODIUM (test code = 131 mmol/L 135-145 L NA) POTASSIUM (test code 4.0 mmol/L 3.6-5.0 N = K) CHLORIDE (test code = 101 mmol/L 101-111 N CL) CARBON DIOXIDE (test 18 mmol/L 21-31 L code = CO2) GLUCOSE (test code = 148 mg/dl 70-100 H GLU) BLOOD UREA NITROGEN 25 mg/dl 6-20 H (test code = BUN) GLOMERULAR FILTRATION 52 >60 L The es timated RATE (test code = glomerular filtration GFR) rate is compute d usingpatient ra ce, age (>18), sex, and serum creatinine. If anyof the needed data elements are mi ssing the Laboratory cannot compute an inga mation of the glomerul ar filtration rate . CREATININE (test code 1.15 mg/dL 0.44-1.03 H = CREAT) CALCIUM (test code = 8.4 mg/dL 8.5-10.5 L CA) [id number] 21:47:00 Test Item Value Reference Range Interpretation Comments GLUBED (test code = GLUBED) 164 MG/DL 70-105 H HGBA1C - GLYCOSYLATED [id number] 20:29:00 Test Item Value Reference Range Interpretation Comments GLYCOSYLATED HEMOGLOBIN 5.4 % 4.0-6.0 N Inte rpretive Data: (HA1C) (test code = Caution should be GLYHGB) exercised when interpreting th e HgbA1c in patients wit h hemolytic anemi a, iron deficiency and when the total hemoglobi n is < 9g/dL, due to a decrease in average age of red blood cells BASIC METABOLIC [id number] 19:00:00 Test Item Value Reference Range Interpretation Comments SODIUM (test code = 132 mmol/L 135-145 L NA) POTASSIUM (test code 3.8 mmol/L 3.6-5.0 N = K) CHLORIDE (test code = 101 mmol/L 101-111 N CL) CARBON DIOXIDE (test 15 mmol/L 21-31 L code = CO2) GLUCOSE (test code = 156 mg/dl 70-100 H GLU) BLOOD UREA NITROGEN 24 mg/dl 6-20 H (test code = BUN) GLOMERULAR FILTRATION 32 >60 L The es timated RATE (test code = glomerular filtration GFR) rate is compute d usingpatient ra ce, age (>18), sex, and serum creatinine. If anyof the needed data elements are mi ssing the Laboratory cannot compute an inga mation of the glomerul ar filtration rate . CREATININE (test code 1.73 mg/dL 0.44-1.03 H = CREAT) CALCIUM (test code = 9.2 mg/dL 8.5-10.5 N CA) LIVER FUNCTION [id number] 19:00:00 Test Item Value Reference Range Interpretation Comments TOTAL PROTEIN (test code = PROT) 5.9 g/dL 6.7-8.2 L ALBUMIN (test code = ALB) 3.4 g/dL 3.2-5.5 N BILIRUBIN TOTAL (test code = BILT) 0.50 mg/dL 0.2-1.3 N BILIRUBIN DIRECT (test code = 0.1 mg/dL 0.00-0.20 N BILD) SGOT/AST (test code = AST) 78 U/L 10-42 H SGPT/ALT (test code = ALT) 100 U/L 10-60 H ALKALINE PHOSPHATASE (test code = 82 U/L 42-121 N ALKP) CREATINE KINASE (CK)2020-10-07 19:00:00 Test Item Value Reference Range Interpretation Comments CREATINE KINASE (CK) (test code = CK) 113 U/L 0-210 N [id number] 19:00:00 Test Item Value Reference Range Interpretation Comments MAGNESIUM (test code = MAG) 2.2 mg/dl 1.8-2.5 N THYROID REFLEX TO [id number] 19:00:00 Test Item Value Reference Range Interpretation Comments THYROID REFLEX TO FT4 (test code 1.899 uIU/ml 0.450-5.330 N = TSHREFLEX) BASIC METABOLIC [id number] 18:57:00 Test Item Value Reference Range Interpretation Comments SODIUM (test code = 132 mmol/L 135-145 L NA) POTASSIUM (test code 3.8 mmol/L 3.6-5.0 N = K) CHLORIDE (test code = 101 mmol/L 101-111 N CL) CARBON DIOXIDE (test 15 mmol/L 21-31 L code = CO2) GLUCOSE (test code = 156 mg/dl 70-100 H GLU) BLOOD UREA NITROGEN 24 mg/dl 6-20 H (test code = BUN) GLOMERULAR FILTRATION 32 >60 L The es timated RATE (test code = glomerular filtration GFR) rate is compute d usingpatient ra ce, age (>18), sex, and serum creatinine. If anyof the needed data elements are mi ssing the Laboratory cannot compute an inga mation of the glomerul ar filtration rate . CREATININE (test code 1.73 mg/dL 0.44-1.03 H = CREAT) CALCIUM (test code = 9.2 mg/dL 8.5-10.5 N CA) LIVER FUNCTION [id number] 18:57:00 Test Item Value Reference Range Interpretation Comments TOTAL PROTEIN (test code = PROT) 5.9 g/dL 6.7-8.2 L ALBUMIN (test code = ALB) 3.4 g/dL 3.2-5.5 N BILIRUBIN TOTAL (test code = BILT) mg/dL 0.2-1.3 BILIRUBIN DIRECT (test code = BILD) mg/dL 0.00-0.20 SGOT/AST (test code = AST) U/L 10-42 SGPT/ALT (test code = ALT) U/L 10-60 ALKALINE PHOSPHATASE (test code = U/L 42-121 ALKP) CREATINE KINASE (CK)2020-10-07 18:57:00 Test Item Value Reference Range Interpretation Comments CREATINE KINASE (CK) (test code = CK) U/L 0-210 [id number] 18:57:00 Test Item Value Reference Range Interpretation Comments MAGNESIUM (test code = MAG) mg/dl 1.8-2.5 THYROID REFLEX TO [id number] 18:57:00 Test Item Value Reference Range Interpretation Comments THYROID REFLEX TO FT4 (test code 1.899 uIU/ml 0.450-5.330 N = TSHREFLEX) BASIC METABOLIC [id number] 18:55:00 Test Item Value Reference Range Interpretation Comments SODIUM (test code = 132 mmol/L 135-145 L NA) POTASSIUM (test code 3.8 mmol/L 3.6-5.0 N = K) CHLORIDE (test code = 101 mmol/L 101-111 N CL) CARBON DIOXIDE (test 15 mmol/L 21-31 L code = CO2) GLUCOSE (test code = 156 mg/dl 70-100 H GLU) BLOOD UREA NITROGEN 24 mg/dl 6-20 H (test code = BUN) GLOMERULAR FILTRATION 32 >60 L The es timated RATE (test code = glomerular filtration GFR) rate is compute d usingpatient ra ce, age (>18), sex, and serum creatinine. If anyof the needed data elements are mi ssing the Laboratory cannot compute an inga mation of the glomerul ar filtration rate . CREATININE (test code 1.73 mg/dL 0.44-1.03 H = CREAT) CALCIUM (test code = 9.2 mg/dL 8.5-10.5 N CA) LIVER FUNCTION [id number] 18:55:00 Test Item Value Reference Range Interpretation Comments TOTAL PROTEIN (test code = PROT) g/dL 6.7-8.2 ALBUMIN (test code = ALB) g/dL 3.2-5.5 BILIRUBIN TOTAL (test code = BILT) mg/dL 0.2-1.3 BILIRUBIN DIRECT (test code = BILD) mg/dL 0.00-0.20 SGOT/AST (test code = AST) U/L 10-42 SGPT/ALT (test code = ALT) U/L 10-60 ALKALINE PHOSPHATASE (test code = U/L 42-121 ALKP) CREATINE KINASE (CK)2020-10-07 18:55:00 Test Item Value Reference Range Interpretation Comments CREATINE KINASE (CK) (test code = CK) U/L 0-210 [id number] 18:55:00 Test Item Value Reference Range Interpretation Comments MAGNESIUM (test code = MAG) mg/dl 1.8-2.5 THYROID REFLEX TO [id number] 18:55:00 Test Item Value Reference Range Interpretation Comments THYROID REFLEX TO FT4 (test code 1.899 uIU/ml 0.450-5.330 N = TSHREFLEX) THYROID REFLEX TO [id number] 18:47:00 Test Item Value Reference Range Interpretation Comments THYROID REFLEX TO FT4 (test code 1.856 uIU/ml 0.450-5.330 = TSHREFLEX) BASIC METABOLIC [id number] 18:32:00 Test Item Value Reference Range Interpretation Comments SODIUM (test code = NA) mmol/L 135-145 POTASSIUM (test code = K) mmol/L 3.6-5.0 CHLORIDE (test code = CL) mmol/L 101-111 CARBON DIOXIDE (test code = CO2) mmol/L 21-31 GLUCOSE (test code = GLU) mg/dl 70-100 BLOOD UREA NITROGEN (test code = BUN) mg/dl 6-20 GLOMERULAR FILTRATION RATE (test code >60 = GFR) CREATININE (test code = CREAT) mg/dL 0.44-1.03 CALCIUM (test code = CA) mg/dL 8.5-10.5 LIVER FUNCTION [id number] 18:32:00 Test Item Value Reference Range Interpretation Comments TOTAL PROTEIN (test code = PROT) g/dL 6.7-8.2 ALBUMIN (test code = ALB) g/dL 3.2-5.5 BILIRUBIN TOTAL (test code = BILT) mg/dL 0.2-1.3 BILIRUBIN DIRECT (test code = BILD) mg/dL 0.00-0.20 SGOT/AST (test code = AST) U/L 10-42 SGPT/ALT (test code = ALT) U/L 10-60 ALKALINE PHOSPHATASE (test code = U/L 42-121 ALKP) CREATINE KINASE (CK)2020-10-07 18:32:00 Test Item Value Reference Range Interpretation Comments CREATINE KINASE (CK) (test code = CK) U/L 0-210 [id number] 18:32:00 Test Item Value Reference Range Interpretation Comments MAGNESIUM (test code = MAG) mg/dl 1.8-2.5 THYROID REFLEX TO [id number] 18:32:00 Test Item Value Reference Range Interpretation Comments THYROID REFLEX TO FT4 (test code 1.899 uIU/ml 0.450-5.330 N = TSHREFLEX) [id number] 18:29:00 Test Item Value Reference Range Interpretation Comments TROPONIN-I (test code = TROPI) 0.020 ng/mL 0.000-0.034 N LACTIC [id number] 18:26:00 Test Item Value Reference Range Interpretation Comments LACTIC ACID (test 5.9 mmol/L 0.5-2.0 HH Critical V alue reported code = LACT) toFirst Name: Jeanette HATCH Last Name:CARMELINAESTER CROFT READ BACK AND SHANNA MAGAÑA1, on 0 10/07/20, @ 1685. CALCIUM [id number] 18:16:00 Test Item Value Reference Range Interpretation Comments CALCIUM IONIZED (test code = DEMOND) 1.32 mmol/L 1.13-1.32 N LACTIC [id number] 13:55:00 Test Item Value Reference Range Interpretation Comments LACTIC ACID (test 6.3 mmol/L 0.5-2.0 HH Critical V alue reported code = LACT) toFirst Name:[facility] Last Name:DR.AL DIMAS READ BACK AND LIOby MARYAM ChildersNB1, on 10/07/20, @ 4485. [id number] 13:28:00 Test Item Value Reference Range Interpretation Comments LIPASE (test code = LIP) 28 IU/L 22-51 N [id number] 13:28:00 Test Item Value Reference Range Interpretation Comments MAGNESIUM (test code = MAG) 2.0 mg/dl 1.8-2.5 N [id number] 13:28:00 Test Item Value Reference Range Interpretation Comments ACETAMINOPHEN (test code = ACET) < 10.0 ug/ml 10.0-30.0 L [id number] 13:28:00 Test Item Value Reference Range Interpretation Comments SALICYLATE (test code = ZIGGY) < 4.0 mg/dl 0.0-30.0 N [id number] 13:28:00 Test Item Value Reference Range Interpretation Comments ALCOHOL (test code = < 5 mg/dl Interpr etive Data:il: ALC) Ethanol Level T o convert into legal unit s, divide result by 1,000 Coronavirus 2019 nCoV [id number] 13:07:00 Test Item Value Reference Range Interpretation Comments Coronavirus 2019 Negative Negative This test h as been nCoV Bedside (test authorize d by FDA under code = [id number]) an EUA for use byauthorized laboratories. T his test has been author ized only for the detecti on ofnucleic acid from SARS-CoV-2, not for any other viruses orpathogens. Th is test is only authorized for the duration of thedeclaration that circumstances e xist justifying theauthorizatio n of emergency use o f in vitro diagnostic test sfor the detection and/o r diagnosis of CO VID-19 under Tqdamvx87 4(b)(1) of the Act, 21 U.S .C 360bbb-3(b)(1), unless theauthorizatio n is terminated or r evoked sooner. Specime n Source: Nasopharyngeal (HOME HEALTH CARE PHYSICIAN) Swab This test has b een authorized by [facility] HATCH under an EUA for use byauthorized laboratories. T his test has been author ized only for the detecti on ofnucleic acid (PCR) from SARS-CoV-2, not from any other viruses o r pathogens. This test is only authorized for the duration of thedeclaration that circumstances e xist justifying theauthorizatio n of emergency use o f in vitro diagnostic test sfor the detection and/o r diagnosis of CO VID-19 under Pynyubq41 4(b)(1) of the Act, 21 U.S .C 360bbb-3(b)(1), unless theauthorizatio n is terminated or r evoked sooner. - CT ABD PELVIS [id number] 11:53:00 [facility] : 1965 Sex: FPatientName: ANETTE ESPITIA Unit No: [id number] EXAMS: CPT: [id number] CT ABD PELVIS W/CONT [id number] TECHNIQUE: CT scan of the abdomen and pelvis performed from the lung bases through the lesser trochanter following the administration of 100 mL Isovue 300 IV contrast. DLP: 539 mGy/cm. The study was performed with radiation dose optimization per ACR practice guidelines and field collector's recommendations which includes: automated exposure control, adjustment of the mA and/or KV according to patient size, and/or use of iterative reconstruction technique. COMPARISON: None CLINICAL HISTORY: Abdominal pain FINDINGS:Lung bases are clear. Diffuse fatty infiltration of the liver seen. No enhancing hepatic mass identif ied. The portal vein is patent. The spleen, pancreas, adrenal glands, and kidneys appear unremarkable. There is no free fluid or free air. No retroperitoneal mass or adenopathy identified. The aorta has a normal caliber. Bowel loops appear unremarkable. No focal bowel wall thickening or mechanical bowel obstruction. The appendix is not visualized. Please correlate with surgical history. The urinary bladder is nondistended but appears grossly within normal limits. No pelvic mass or adenopathy identified. No acute or aggressive bony lesion identified. Post surgical changes are seen from fusion of L4and L5 with posterior instrumentation. Intraspinal neurostimulator noted. IMPRESSION: No acute findings identified. Diffuse fatty infiltration of the liver. Electronically Signed by Kai Maier MD on10/07/2020 at 1153 Reported and signed by: Kai Maier MD Name: ANETTE ESPITIA [facility] Phys: Haseeb Riddle MD [address] : 1965 Age: 55 Sex: [place] [address] Loc: N.ERS Exam Date: 10/07/2020 Status: REG ER PH: FAX: PAGE 1 Signed Report (CONTINUED) Patient Name: ANETTE ESPITIA Unit No: [id number] EXAMS: CPT: [id number] CT ABD PELVIS W/CONT 70341 (Continued) CC: Technologist: Esther Ashby CTDI: 10.89 DLP: 539.39 Trscr Dt/Tm: 10/07/2020 (1153) by:Hiram Orig Print D/T: S: 10/07/2020 (1156) BATCH NO: N/A Name: ANETTE ESPITIA [facility] Phys: Haseeb Riddle MD [address] [place] : 1965 Age: 55 Sex: [place] [address] Loc: N.ERS Exam Date: 10/07/2020 Status: REG ER PH: FAX: PAGE 2 SignedReport [id number] 11:52:00 Test Item Value Reference Range Interpretation Comments LIPASE (test code = LIP) 28 IU/L 22-51 N [id number] 11:52:00 Test Item Value Reference Range Interpretation Comments MAGNESIUM (test code = MAG) 2.0 mg/dl 1.8-2.5 N [id number] 11:52:00 Test Item Value Reference Range Interpretation Comments ACETAMINOPHEN (test code = ACET) ug/ml 10.0-30.0 [id number] 11:52:00 Test Item Value Reference Range Interpretation Comments SALICYLATE (test code = ZIGGY) < 4.0 mg/dl 0.0-30.0 N [id number] 11:52:00 Test Item Value Reference Range Interpretation Comments ALCOHOL (test code = < 5 mg/dl Interpr etive Data:il: ALC) Ethanol Level T o convert into legal unit s, divide result by 1,000 [id number] 11:37:00 Test Item Value Reference Range Interpretation Comments LIPASE (test code = LIP) 28 IU/L 22-51 N [id number] 11:37:00 Test Item Value Reference Range Interpretation Comments MAGNESIUM (test code = MAG) 2.0 mg/dl 1.8-2.5 N [id number] 11:37:00 Test Item Value Reference Range Interpretation Comments ACETAMINOPHEN (test code = ACET) ug/ml 10.0-30.0 [id number] 11:37:00 Test Item Value Reference Range Interpretation Comments SALICYLATE (test code = ZIGGY) mg/dl 0.0-30.0 [id number] 11:37:00 Test Item Value Reference Range Interpretation Comments ALCOHOL (test code = < 5 mg/dl Interpr etive Data:il: ALC) Ethanol Level T o convert into legal unit s, divide result by 1,000 [id number] 11:09:00 Test Item Value Reference Range Interpretation Comments LIPASE (test code = LIP) 28 IU/L 22-51 N [id number] 11:09:00 Test Item Value Reference Range Interpretation Comments MAGNESIUM (test code = MAG) mg/dl 1.8-2.5 [id number] 11:09:00 Test Item Value Reference Range Interpretation Comments ACETAMINOPHEN (test code = ACET) ug/ml 10.0-30.0 [id number] 11:09:00 Test Item Value Reference Range Interpretation Comments SALICYLATE (test code = ZIGGY) mg/dl 0.0-30.0 [id number] 11:09:00 Test Item Value Reference Range Interpretation Comments ALCOHOL (test code = ALC) mg/dl LACTIC [id number] 11:08:00 Test Item Value Reference Range Interpretation Comments LACTIC ACID (test 8.8 mmol/L 0.5-2.0 HH Critical V alue reported code = LACT) toFirst Name:FORTUNATO BECKETT Last Name:BELKYS RESULTS READ BACK AND VERIFIEDby MARYAM YIP, on 10/07/20, @ 1108. DRUGS OF ABUSE SCREEN [id number] 08:35:00 Test Item Value Reference Range Interpretation Comments UR COCAINE (test code NEGATIVE NEGATIVE This i s a toxicology = COCAU) qualitative scr eening test only, whic hmay detect parent c ompound or metabolite or relatedsubstanc e. If confirmatory te sting is desired, please request drug screen con firmation. These results a re unconfirmed and should be used only for m edical purposes. Cut-o ff concentration f or Cocaine is 300 ng/mLRec ommended screening cut[facility]o [facility] by [facility]. UR CANABINOIDS (test NEGATIVE NEGATIVE This is a toxicology code = CANU) qualitative scr eening test only which may detect parent compound or metabolite or relatedsubstanc e. If confirmatory te sting is desired, please request drug screen con firmation. These results areunconfirmed and should be used only fo r medical purposes. Cut-o ff concentration f or THC is 50 ng/mLRecomme nded screening cut-o ff concentrations by theSubstance Ab use and Mental Health [facility]. UR AMPHETAMINE (test NEGATIVE NEGATIVE The ing estion of natural code = AMPHU) herbal and lan nt productscontain ing Ephedra/Ephedra -Metabolit es can produce in urineone or mor e substances capa ble of cross-reacting withAmphetamine /Methamphe tamine immunoas says. This testprovides a preliminary res ult only. A more specificalterna tive chemical method must be used to obtain aconfirmed analytical resu lt. This is a toxicology qualitative scr eening test only which may detect parent compund or metabolite or relatedsubstanc e. If confirmatory te sting is desired, please request drug screen con firmation. These results areunconfirmed and should be used only fo r medical purposes. Cut-o ff concentration f or Amphetamines is 1000 ng/mLRecommende d screening cut-o ff concentrations by thebstance Ab use and [facility]. UR BARBITURATE (test NEGATIVE NEGATIVE This is a toxicology code = BARBQLU) qualitative screening test only which may detect parent compund or metabolite or relatedsubstanc e. If confirmatory te sting is desired, please request drug screen con firmation. These results areunconfirmed and should be used only fo r medical purposes. Cut-o ff concentration f or Barbiturates is 200 ng/mLRecommende d screening cut-o ff concentrations by theSubstance Ab use and Mental [facility]. UR BENZODIAZEPINE NEGATIVE NEGATIVE This is a toxicology (test code = BENZU) qualitat tashi screening test only which may detect parent compound or metabolite or relatedsubstanc e. If confirmatory te sting is desired, please request drug screen con firmation. These results areunconfirmed and should be used only fo r medical purposes. Cut-o ff concentration f or Benzodiazepines is 200 ng/mLRecommende d screening cut-o ff concentrations by [facility] Ab use and [facility]. UR OPIATES QUAL (test POSITIVE NEGATIVE A This i s a toxicology code = OPIAQLU) qualitative screening test only which may detect parent compound or metabolite or relatedsubstanc e. If confirmatory te sting is desired, please request drug screen con firmation. These results areunconfirmed and should be used only fo r medical purposes. Cut-o ff concentration f or Opiates is 300 ng/mLRec ommended screening cut-o ff concentrations by thebstance Ab use and [facility]. UR PHENCYCLIDINE NEGATIVE NEGATIVE This is a t oxicology (PCP) (test code = qualitati ve screening PHENCU) test only which may detect parent compund or metabolite or relatedsubstanc e. If confirmatory te sting is desired, please request drug screen con firmation. These results areunconfirmed and should be used only fo r medical purposes. Cut-o ff concentration f or PCP is 25 ng/mLRecomme nded screening cut-o ff concentrations by [facility] and [facility]. COMPREHENSIVE METABOLIC [id number] 08:04:00 Test Item Value Reference Range Interpretation Comments SODIUM (test code = 133 mmol/L 135-145 L NA) POTASSIUM (test code 3.2 mmol/L 3.6-5.0 L = K) CHLORIDE (test code = 97 mmol/L 101-111 L CL) CARBON DIOXIDE (test 17 mmol/L 21-31 L code = CO2) GLUCOSE (test code = 156 mg/dl 70-100 H GLU) BLOOD UREA NITROGEN 21 mg/dl 6-20 H (test code = BUN) GLOMERULAR FILTRATION 34 >60 L The es timated RATE (test code = glomerular filtration GFR) rate is compute d usingpatient ra ce, age (>18), sex, and serum creatinine. If anyof the needed data elements are mi ssing the Laboratory cannot compute an inga mation of the glomerul ar filtration rate . CREATININE (test code 1.64 mg/dL 0.44-1.03 H = CREAT) TOTAL PROTEIN (test 6.9 g/dL 6.7-8.2 N code = PROT) ALBUMIN (test code = 4.2 g/dL 3.2-5.5 N ALB) CALCIUM (test code = 9.5 mg/dL 8.5-10.5 N CA) BILIRUBIN TOTAL (test 0.40 mg/dL 0.2-1.3 N code = BILT) SGOT/AST (test code = 29 U/L 10-42 N AST) SGPT/ALT (test code = 41 U/L 10-60 N ALT) ALKALINE PHOSPHATASE 87 U/L 42-121 N (test code = ALKP) [id number] 08:04:00 Test Item Value Reference Range Interpretation Comments TROPONIN-I (test code = TROPI) <0.020 ng/mL 0.000-0.034 N COMPREHENSIVE METABOLIC [id number] 08:02:00 Test Item Value Reference Range Interpretation Comments SODIUM (test code = 133 mmol/L 135-145 L NA) POTASSIUM (test code 3.2 mmol/L 3.6-5.0 L = K) CHLORIDE (test code = 97 mmol/L 101-111 L CL) CARBON DIOXIDE (test 17 mmol/L 21-31 L code = CO2) GLUCOSE (test code = 156 mg/dl 70-100 H GLU) BLOOD UREA NITROGEN 21 mg/dl 6-20 H (test code = BUN) GLOMERULAR FILTRATION 34 >60 L The es timated RATE (test code = glomerular filtration GFR) rate is compute d usingpatient ra ce, age (>18), sex, and serum creatinine. If anyof the needed data elements are mi ssing the Laboratory cannot compute an inga mation of the glomerul ar filtration rate . CREATININE (test code 1.64 mg/dL 0.44-1.03 H = CREAT) TOTAL PROTEIN (test 6.9 g/dL 6.7-8.2 N code = PROT) ALBUMIN (test code = 4.2 g/dL 3.2-5.5 N ALB) CALCIUM (test code = 9.5 mg/dL 8.5-10.5 N CA) BILIRUBIN TOTAL (test mg/dL 0.2-1.3 code = BILT) SGOT/AST (test code = U/L 10-42 AST) SGPT/ALT (test code = U/L 10-60 ALT) ALKALINE PHOSPHATASE U/L 42-121 (test code = ALKP) COMPREHENSIVE METABOLIC [id number] 07:59:00 Test Item Value Reference Range Interpretation Comments SODIUM (test code = 133 mmol/L 135-145 L NA) POTASSIUM (test code 3.2 mmol/L 3.6-5.0 L = K) CHLORIDE (test code = 97 mmol/L 101-111 L CL) CARBON DIOXIDE (test 17 mmol/L 21-31 L code = CO2) GLUCOSE (test code = 156 mg/dl 70-100 H GLU) BLOOD UREA NITROGEN 21 mg/dl 6-20 H (test code = BUN) GLOMERULAR FILTRATION 34 >60 L The es timated RATE (test code = glomerular filtration GFR) rate is compute d usingpatient ra ce, age (>18), sex, and serum creatinine. If anyof the needed data elements are mi ssing the Laboratory cannot compute an inga mation of the glomerul ar filtration rate . CREATININE (test code 1.64 mg/dL 0.44-1.03 H = CREAT) TOTAL PROTEIN (test g/dL 6.7-8.2 code = PROT) ALBUMIN (test code = g/dL 3.2-5.5 ALB) CALCIUM (test code = 9.5 mg/dL 8.5-10.5 N CA) BILIRUBIN TOTAL (test mg/dL 0.2-1.3 code = BILT) SGOT/AST (test code = U/L 10-42 AST) SGPT/ALT (test code = U/L 10-60 ALT) ALKALINE PHOSPHATASE U/L 42-121 (test code = ALKP) URINALYSIS [id number] 07:58:00 Test Item Value Reference Range Interpretation Comments UA COLOR (test code = Lorraine YELLOW COLU) UA APPEARANCE (test Cloudy CLEAR code = APPU) UA GLUCOSE DIPSTICK 1+ NEGATIVE (test code = DGLUU) UA BILIRUBIN DIPSTICK NEGATIVE NEGATIVE (test code = BILU) UA KETONE DIPSTICK NEGATIVE NEGATIVE (test code = KETU) UA SPECIFIC GRAVITY 1.020 1.001-1.030 (test code = SGU) UA BLOOD DIPSTICK NEGATIVE NEGATIVE (test code = RACHEAL) UA PH DIPSTICK (test 5.0 5.0-9.0 code = CHAPARRO) UA PROTEIN DIPSTICK 2+ NEGATIVE A (test code = PROU) UA UROBILINOGEN 2.0 See_Comment A [Automated message] DIPSTICK (test code = The sy stem which URO) generated this result transmitted ref erence range: <=1.0. T he reference range was not used to int erpret this result as normal/abnormal . UA NITRITE DIPSTICK NEGATIVE NEGATIVE (test code = WARREN) UA ASCORBIC ACID NEGATIVE DIPSTICK (test code = AAU) UA LEUKOCYTE ESTERASE 2+ NEGATIVE A DIPSTICK (test code = LEUU) UA WBC (test code = 11-20 /HPF 0-5 WBCU) UA RBC (test code = 0-5 /HPF 0-5 RBCU) UA EPITHELIAL CELLS FEW /LPF NONE-FEW (test code = EPIU) UA BACTERIA (test code 1+ /HPF NONE SEEN A = BACU) UA HYALINE CAST (test >20 /LPF 0-1 A code = HYALU) CBC W/AUTO [id number] 07:46:00 Test Item Value Reference Range Interpretation Comments WHITE BLOOD CELL (test code = 21.6 x10 3/uL 3.2-11.5 H WBC) RED BLOOD CELL (test code = 5.17 x10(6)/m 3.70-5.10 H RBC) HEMOGLOBIN (test code = HGB) 14.3 g/dL 12.0-15.0 N HEMATOCRIT (test code = HCT) 43.1 % 35.7-44.8 N MEAN CELL VOLUME (test code = 83 fL 80-100 N MCV) MEAN CELL HGB (test code = MCH) 27.7 pg 26.2-33.8 N MEAN CELL HGB CONCENTRATION 33.2 g/dL 30.0-34.0 N (test code = MCHC) RED CELL DISTRIBUTION WIDTH 12.2 % 11.3-14.5 N (test code = RDW) PLATELET COUNT (test code = 428 x10 3/uL 130-408 H PLT) MEAN PLATELET VOLUME (test code 9.0 fL 8.6-12.6 N = MPV) NEUTROPHIL % (test code = NT%) 79.5 % 40.0-70.0 H IMMATURE GRANULOCYTE % (test 1.9 % 0.0-2.0 N code = IG%) LYMPHOCYTE % (test code = LY%) 13.2 % 20-40 L MONOCYTE % (test code = MO%) 4.6 % 1-10 N EOSINOPHIL % (test code = EO%) 0.4 % 0.0-5.0 N BASOPHIL % (test code = BA%) 0.4 % 0.0-1.0 N NUCLEATED RBC % (test code = 0.0 % 0.0-0.9 N NRBC%) NEUTROPHIL # (test code = NT#) 17.2 x10 3/uL 1.6-7.2 H LYMPHOCYTE # (test code = LY#) 2.85 x10 3/uL 1.1-2.7 H MONOCYTE # (test code = MO#) 1.0 x10 3/uL 0.3-0.8 H EOSINOPHIL # (test code = EO#) 0.1 x10 3/uL 0.0-0.5 N BASOPHIL # (test code = BA#) 0.1 x10 3/uL 0.0-0.1 N CBC W/AUTO [id number] 07:44:00 Test Item Value Reference Range Interpretation Comments WHITE BLOOD CELL (test code = 21.6 x10 3/uL 3.2-11.5 H WBC) RED BLOOD CELL (test code = 5.17 x10(6)/m 3.70-5.10 H RBC) HEMOGLOBIN (test code = HGB) 14.3 g/dL 12.0-15.0 N HEMATOCRIT (test code = HCT) 43.1 % 35.7-44.8 N MEAN CELL VOLUME (test code = 83 fL 80-100 N MCV) MEAN CELL HGB (test code = MCH) 27.7 pg 26.2-33.8 N MEAN CELL HGB CONCENTRATION 33.2 g/dL 30.0-34.0 N (test code = MCHC) RED CELL DISTRIBUTION WIDTH % 11.3-14.5 (test code = RDW) PLATELET COUNT (test code = x10 3/uL 130-408 PLT) MEAN PLATELET VOLUME (test code 9.0 fL 8.6-12.6 N = MPV) NEUTROPHIL % (test code = NT%) % 40.0-70.0 LYMPHOCYTE % (test code = LY%) % 20-40 MONOCYTE % (test code = MO%) % 1-10 EOSINOPHIL % (test code = EO%) % 0.0-5.0 BASOPHIL % (test code = BA%) % 0.0-1.0 NUCLEATED RBC % (test code = % 0.0-0.9 NRBC%) NEUTROPHIL # (test code = NT#) x10 3/uL 1.6-7.2 LYMPHOCYTE # (test code = LY#) x10 3/uL 1.1-2.7 MONOCYTE # (test code = MO#) x10 3/uL 0.3-0.8 EOSINOPHIL # (test code = EO#) x10 3/uL 0.0-0.5 - XR CHEST 1 [id number] 06:44:00 [facility] : 1965 Sex: FPatientName: ANETTE ESPITIA Unit No: [id number] EXAMS: CPT: [id number] XR CHEST 1 V [id number] PORTABLE CHEST, 10/07/2020. Comparison: None. CLINICAL: Chest pain. COMMENT: The heart, mediastinum, hilar regions and pulmonary vasculature appear within normal limits. The lungs are free of active disease. The bony thorax is intact. IMPRESSION: No evidence to suggest active cardiopulmonary disease. at 0644 Reported and signed by: Ellis Spivey MD CC: Mariaa Caballero NP Technologist: Helga Moncada Time: DAP (Gy m2): Air Kerma (mGy): Trscr Dt/Tm: 10/07/2020(0644) by:[email or web address] Orig Print D/T: S: 10/07/2020 (0647) BATCH NO: N/A Name: ANETTE ESPITIA [facility] Phys: Mariaa Gordon NP [address] [place] : 1965 Age: 55 Sex: F Adina Boothe [id number] Loc: N.ERS Exam Date: 10/07/2020 Status: PRE ER PH: FAX: PAGE 1 Signed Report
[2022-05-24] MEDS ORDERED: LIDOCAINE VISCOUS 2% SOLN 15 ML UDC ONE (14:21)
[2022-05-24 15:01] LABS: SARS-COV-2 RT PCR NEGATIVE (NEGATIVE)
--- NOTE | 2022-05-24 15:12 | ER ---
Nurse's Notes [facility] Name: Magali Quiroz Age: 56 yrs Sex: Female : 1965 Arrival Date: 05/24/2022 Time: 13:42 Bed 12 Private MD: Rigoberto Morales Diagnosis: Streptococcal pharyngitis;Local infection of the skin and subcutaneous tissue, unspecified-chest Presentation: 05/24 13:50 Chief complaint: Patient states: Sore throat, not feeling well since Thursday. ll1 Coronavirus screen: Vaccine status: Patient reports receiving the 2nd dose of the covid vaccine. Client denies travel out of the [place] in the last 14 days. congestion, cough unrelated to allergies, fatigue, headache, sore throat, Client presents with at least one sign or symptom that may indicate coronavirus-19. Standard/surgical mask placed on the client. Ebola Screen: Patient denies travel to an Ebola-affected area in the 21 days before illness onset. Initial Sepsis Screen: Does the patient meet any 2 criteria? No. Patient's initial sepsis screen is negative. Does the patient have a suspected source of infection? Yes: Other: sore throat. Risk Assessment: Do you want to hurt yourself or someone else? Patient reports no desire to harm self or others. Onset of symptoms was May 23, 2022. 13:50 Method Of Arrival: Ambulatory 1 13:50 Acuity: KATHERINE 4 ll1 Triage Assessment: 13:50 General: Appears uncomfortable, ill, Behavior is calm, cooperative, appropriate for 1 age. Pain: Complains of pain in L side of throat Quality of pain is described as aching. EENT: Throat is reddened Reports pain in L side of throat. 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 - Social history:: Smoking status: Patient denies any tobacco usage or history of. Screenin:26 [facility] ED Fall Risk Assessment (Adult) Score/Fall Risk Level 0 - 2 = Low Risk ll1 Oriented to surroundings, Maintained a safe environment, Educated pt \T\ family on fall prevention, incl call for assistance when getting out of bed, Hourly rounding (assess needs \T\ fall precautionary measures) done. Abuse screen: Denies threats or abuse. Nutritional screening: No deficits noted. Tuberculosis screening: No symptoms or risk factors identified. Assessment: 14:27 Respiratory: Airway is patent Respiratory effort is even, unlabored. ll1 Vital Signs: 13:50 BP 121 / 96; Pulse 102; Resp 17; Temp 99.8; Pulse Ox 95% on R/A; Weight 76.66 kg; ll1 Height 5 ft. 4 in. ; Pain 9/10; 13:50 Body Mass Index 29.01 (76.66 kg, 162.56 cm) ll1 13:50 Pain Scale: Adult ll1 ED Course: 13:42 Patient arrived in ED. mr 13:42 Rigoberto Morales MD is Private Physician. mr 13:43 [facility]idenc[facility] Knott [facility] cp 13:43 Tim Alaniz MD is Attending Physician. cp 13:52 Triage completed. ll1 13:53 Arm band placed on Patient placed in an exam room, on a stretcher. ll1 14:08 COVID-19/FLU A+B Sent. rs5 14:08 Strep Sent. rs5 14:27 Patient has correct armband on for positive identification. Bed in low position. Call ll1 light in reach. Cardiac monitoring not applicable on this patient. Administered Medications: 14:20 Drug: Viscous Lidocaine Mucous Membrane Liquid (4 %) 5 ml Route: Mucous Membrane; ll1 Medication: 14:27 VIS not applicable for this client. ll1 Outcome: 15:12 Discharge ordered by . cp Signatures: Carina Galvan mr Fidencio Knott PA PA Karma Brewster, RN RN ll1 Vasile South rs5
--- NOTE | 2022-05-24 15:12 | EDPHYS ---
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 - Social history:: Smoking status: Patient denies any tobacco usage or history of. Vital Signs: 13:50 BP 121 / 96; Pulse 102; Resp 17; Temp 99.8; Pulse Ox 95% on R/A; Weight 76.66 kg; ll1 Height 5 ft. 4 in. ; Pain 9/10; 13:50 Body Mass Index 29.01 (76.66 kg, 162.56 cm) ll1 13:50 Pain Scale: Adult ll1 MDM: 13:54 Patient medically screened. cp 05/24 13:51 Order name: Strep cp 05/24 13:51 Order name: COVID-19/FLU A+B cp Administered Medications: 14:20 Drug: Viscous Lidocaine Mucous Membrane Liquid (4 %) 5 ml Route: Mucous Membrane; ll1 Disposition Summary: 05/24/22 15:12 Discharge Ordered Location: Home cp Problem: new cp Symptoms: have improved cp Condition: Stable cp Diagnosis - Streptococcal pharyngitis cp - Local infection of the skin and subcutaneous tissue, unspecified - chest cp Followup: cp - With: Private Physician - When: 2 - 3 days - Reason: Worsening of condition Forms: - Medication Reconciliation Form cp - Thank You Letter cp - Antibiotic Education cp - Prescription Opioid Use cp Signatures: Dispatcher [employer] EDMS Fidencio Knott PA PA cp Lewis, Lynsay, RN RN ll1
[2022-05-24] MEDS ORDERED: AMOX/K CLAV 875 MG TAB ONE (15:21)
[2022-05-24 15:48] VITALS: O2SAT 95
[2022-05-24 15:49] VITALS: BP 99/58; TEMP 98.2
== END 2022-05-24 15:27 | disposition home or self-care (01) ==
LOC: ER 13:40
DX: J02.0 Streptococcal pharyngitis (principal); L08.9 Local infection of the skin and subcutaneous tissue, unspecified; Z20.822 Contact with and (suspected) exposure to COVID-19; Z88.5 Allergy status to narcotic agent
CPT/HCPCS: 87081; 0240U; 99283